=== PATIENT | male | born 1965 | race American Indian/Alaskan Native ===

== ENCOUNTER 2017-11-04 18:19 | Emergency (ER) | payer MEDICAID ==
[~2017-11-04] VITALS: Ht 177.8 cm; Wt 104.3 kg
[2017-11-04] MEDS ORDERED: METFORMIN HCL850 M1 ORAL (18:39)
[2017-11-04] MEDS ORDERED: UNOBMED (18:39)
[2017-11-04 18:53] VITALS: BP 118/75
[2017-11-04] MEDS ORDERED: Tetanus/Diptheria/Pertussis Vaccine 0.5ml Syr IM ONE (19:00)
[2017-11-04] MEDS ORDERED: Augmentin 875mg Tab ORAL ONE (19:00)
[2017-11-04] MEDS ORDERED: AUGMENTIN 875-1 EAC1 ORAL (19:07)
[2017-11-04 19:10] VITALS: BP 120/70
--- NOTE | 2017-11-05 14:07 | Emergency Room Report ---
History of Present Illness General Chief Complaint: General Complaint Source: Patient Present Illness HPI 52-year-old male presents ED for evaluation. Patient states 4 days ago he stepped on a nail. With his right foot. States he pulled out the nail immediately. Notes pain, throbbing, 10 out of 10, nonradiating. Denies fevers chills. Denies discharge or bleeding. Tetanus unknown. No other aggravating relieving factors. Denies any other associated symptoms Allergies: Coded Allergies: No Known Allergies (Unverified , 11/04/17) Patient History Past Medical History: HTN, CHF Past Surgical History: none Pertinent Family History: none Social History: Denies: smoking, alcohol use, drug use Immunizations: UTD Reviewed Nursing Documentation: PMH: Agreed, PSxH: Agreed Nursing Documentation-PMH Hx Cardiac Problems: Yes - CHF Hx Hypertension: Yes Review of Systems All Other Systems: negative except mentioned in HPI Physical Exam Vital Signs Date Time Temp Pulse Resp B/P (MAP) Pulse Ox O2 Delivery O2 Flow Rate FiO2 11/04/17 18:35 97.9 103 17 118/75 96 Room Air Sp02 EP Interpretation: reviewed, normal General Appearance: no apparent distress, alert, GCS 15, non-toxic Head: normocephalic Eyes: bilateral eye normal inspection, bilateral eye PERRL ENT: normal ENT inspection Neck: normal inspection Respiratory: normal inspection Cardiovascular #1: normal inspection Gastrointestinal: normal inspection Rectal: deferred Genitourinary: no CVA tenderness Musculoskeletal: normal inspection Neurologic: alert, oriented x3, responsive, motor strength/tone normal, sensory intact, speech normal Psychiatric: judgement/insight normal, memory normal, mood/affect normal, no suicidal/homicidal ideation Skin: other - puncture wound sole R lateral foot. no surrounding erythema/ induration/fluctuance Lymphatic: normal inspection Medical Decision Making Diagnostic Impression: Primary Impression: Puncture wound ER Course Hospital Course 52-year-old male presents ED with puncture wound to right foot. Differential diagnoses include: Cellulitis, soft tissue injury, abscess Clinical course Patient placed on stretcher. After initial history, physical exam reveals a male in no acute distress. On exam there is evidence of a puncture wound to the lateral aspect of the stable the right foot. There is no surrounding induration or erythema. No fluctuance. No discharge. No bleeding. wound irrigated. Tetanus given in ED. Given Augmentin by mouth Diagnosis - puncture wound stable and discharged to home with prescription for Augmentin. Instructed to followup with PMD. Instructed return to ED if symptoms recur or worsen Last Vital Signs Date Time Temp Pulse Resp B/P (MAP) Pulse Ox O2 Delivery O2 Flow Rate FiO2 11/04/17 19:10 97.9 68 18 120/70 99 Room Air Status: improved Disposition: HOME, SELF-CARE Condition: Stable Scripts Amoxicillin/Potassium Clav 875-125* (AUGMENTIN 875-125 TABLET*) 1 Each Tablet 1 TAB ORAL TWICE A DAY, #14 TAB Prov: NADINE FLORES M.D. 11/04/17 Referrals: [facility],REFERRING (PCP) Patient Instructions: Puncture Wound, [id number] NADINE FLORES M.D. Nov 05, 2017 14:07
== END 2017-11-04 19:20 | disposition home or self-care (01) ==
LOC: EMR 19:12
DX: S91.331A Puncture wound without foreign body, right foot, initial encounter (principal); W22.8XXA Striking against or struck by other objects, initial encounter; Y92.89 Other specified places as the place of occurrence of the external cause; Z23 Encounter for immunization; I11.0 Hypertensive heart disease with heart failure; I50.9 Heart failure, unspecified
CPT/HCPCS: 90471; 90715; 99283

== ENCOUNTER 2019-01-01 19:16 | Inpatient (IN) | payer MEDICAID ==
[~2019-01-01] VITALS: Ht 172.7 cm; Wt 113.9 kg
[~2019-01-01 19:16] MED LIST: AUGMENTIN 875-1 EAC1 ORAL; METFORMIN HCL850 M1 ORAL; UNOBMED
[2019-01-01 19:32] VITALS: BP 156/86
--- NOTE | 2019-01-01 19:32 | NUR ---
ER Nurse Note: Pt BIBA from home c/o abdominal pain for 2 days. Pt stated he had n/v/d; vomited yellow like emesis. Bowel sounds heard in all quadrants, no difficulty voiding. Abdomen distended. No skin breakdown, steady gait. Pt a&ox4, VSS, no signs of distress. ERMD at pt side; will continue to monitor.
[2019-01-01] MEDS ORDERED: Morphine Sulfate 2mg/ml Inj IVP ONE (20:00)
[2019-01-01 20:11] LABS: ANION GAP 8 mmol/L (5-15); BLOOD UREA NITROGEN 14 mg/dL (7-18); CALCIUM 9.6 MG/DL (8.5-10.1); CARBON DIOXIDE 28 MMOL/L (21-32); CHLORIDE 103 MMOL/L (98-107); CREATININE 1.1 MG/DL (0.55-1.30); POTASSIUM 3.6 MMOL/L (3.5-5.1); SODIUM 139 MMOL/L (136-145)
[2019-01-01 20:14] LABS: APPEARANCE,URINE CLEAR; BILIRUBIN, URINE NEGATIVE (NEGATIVE); COLOR,URINE PALE YELLOW; GLUCOSE, URINE (UA) 4+ (NEGATIVE); KETONES,URINE 1+ (NEGATIVE); LEUKOCYTE ESTERASE ,URINE NEGATIVE (NEGATIVE); NITRITE,URINE NEGATIVE (NEGATIVE); PH,URINE 7 (4.5-8.0); PROTEIN,URINE 3+ (NEGATIVE); UROBILINOGEN,URINE NORMAL MG/DL (0.0-1.0)
[2019-01-01 20:20] LABS: ALANINE AMINOTRANSFERASE 25 U/L (12-78); ALBUMIN 3.7 G/DL (3.4-5.0); ALBUMIN/GLOBULIN RATIO 0.9 (1.0-2.7); ALKALINE PHOSPHATASE 73 U/L (46-116); ASPARTATE AMINO TRANSFERASE 24 U/L (15-37); BILIRUBIN,TOTAL 0.9 MG/DL (0.2-1.0); CREATINE KINASE 535 U/L (26-308)
[2019-01-01 20:33] LABS: HEMATOCRIT 40.2 % (42.0-52.0); HEMOGLOBIN 12.9 G/DL (14.2-18.0); MEAN CORPUSCULAR VOLUME 89 FL (80-99); PLATELET COUNT 237 K/UL (150-450); RED BLOOD COUNT 4.53 M/UL (4.70-6.10); RED CELL DISTRIBUTION WIDTH 12.5 % (11.6-14.8); WHITE BLOOD COUNT 12.4 K/UL (4.8-10.8)
--- NOTE | 2019-01-01 21:23 | NUR ---
ER Nurse Note: Pt asleep, VSS, no signs of distress. Pt had on epi of vomiting; ERMD notifed. Awiting lab results; will continue to montior.
[2019-01-01 21:26] VITALS: BP 156/86
[2019-01-01] MEDS ORDERED: Isovue-300 100ml vial INJ PRN (21:30)
[2019-01-01] MEDS ORDERED: CARVEDILOL12.5 MG ORAL (21:45)
[2019-01-01] MEDS ORDERED: FUROSEMIDE20 M1 ORAL (21:45)
[2019-01-01] MEDS ORDERED: GLIPIZIDE5 MG ORAL (21:45)
[2019-01-01] MEDS ORDERED: ELIQUIS5 MG PO (21:45)
[2019-01-01] MEDS ORDERED: ATORVASTATIN CA80 MG ORAL (21:45)
[2019-01-01] MEDS ORDERED: LISINOPRIL5 MG ORAL (21:45)
[2019-01-01] MEDS ORDERED: LOVASTATIN20 MG ORAL (21:45)
--- NOTE | 2019-01-01 23:57 | Consultation ---
History of Present Illness General Date patient seen: Jan 01, 2019 Chief Complaint: Abdominal Pain Reason for Consultation: incarcerated vental hernia Present Illness HPI called urgently for evaluation of incarcerated ventral hernia. 53M presented with 1-2 days of abdominal pain with associated n/v. pain cramping generalized pain. CT in ED concerning for incarcerated ventral hernia. surgery called to evaluate and assist with care and management. patient seen in ED. last BM yesterday. passing flatus. no longer with n/v. Allergies: Coded Allergies: No Known Allergies (Unverified , 11/04/17) Medication History Scheduled Amoxicillin/Potassium Clav 875-125* (Augmentin 875-125 Tablet*), 1 TAB ORAL TWICE A DAY Atorvastatin Calcium* (Lipitor*), 80 MG ORAL BEDTIME, (Reported) Carvedilol* (Carvedilol*), 12.5 MG ORAL EVERY 12 HOURS, (Reported) Furosemide* (Lasix*), 20 MG ORAL DAILY, (Reported) Glipizide* (Glipizide*), 5 MG ORAL BIDAC, (Reported) Lisinopril (Lisinopril*), 5 MG ORAL DAILY, (Reported) Lovastatin (Lovastatin), 20 MG ORAL BEDTIME, (Reported) Metformin Hcl* (Metformin Hcl*), 850 MG ORAL DAILY, (Reported) Miscellaneous Medications Apixaban (Eliquis), 5 MG PO, (Reported) Unable to Obtain Medications (Unable To Obtain Meds), (Reported) Patient History History Provided By: Medical Record, PMD Healthcare decision maker Resuscitation status Advanced Directive on File Past Medical/Surgical History Past Medical/Surgical History: (1) Incarcerated ventral hernia (2) Puncture wound Review of Systems All Other Systems: negative except mentioned in HPI Physical Exam General Appearance: no apparent distress Lines, tubes and drains: peripheral HEENT: mucous membranes moist Neck: normal inspection Respiratory/Chest: no respiratory distress Cardiovascular/Chest: regular rhythm Abdomen: non tender, soft, no organomegaly, no mass, decreased bowel sounds, hernia Extremities: normal inspection Skin Exam: warm/dry Neurologic: alert Last 24 Hour Vital Signs Date Time Temp Pulse Resp B/P (MAP) Pulse Ox O2 Delivery O2 Flow Rate FiO2 01/01/19 21:26 98.1 74 16 156/86 100 Room Air 2/9/19 21:25 98.2 01/01/19 19:32 98.2 82 18 156/86 100 Room Air 01/01/19 19:32 84 18 Room Air 01/01/19 19:10 98.2 84 18 156/86 100 Room Air Laboratory Tests Test 01/01/19 19:40 White Blood Count 12.4 K/UL (4.8-10.8) H Red Blood Count 4.53 M/UL (4.70-6.10) L Hemoglobin 12.9 G/DL (14.2-18.0) L Hematocrit 40.2 % (42.0-52.0) L Mean Corpuscular Volume 89 FL (80-99) Mean Corpuscular Hemoglobin 28.5 PG (27.0-31.0) Mean Corpuscular Hemoglobin Concent 32.2 G/DL (32.0-36.0) Red Cell Distribution Width 12.5 % (11.6-14.8) Platelet Count 237 K/UL (150-450) Mean Platelet Volume 8.0 FL (6.5-10.1) Neutrophils (%) (Auto) % (45.0-75.0) Lymphocytes (%) (Auto) % (20.0-45.0) Monocytes (%) (Auto) % (1.0-10.0) Eosinophils (%) (Auto) % (0.0-3.0) Basophils (%) (Auto) % (0.0-2.0) Differential Total Cells Counted 100 Neutrophils % (Manual) 84 % (45-75) H Lymphocytes % (Manual) 10 % (20-45) L Monocytes % (Manual) 5 % (1-10) Eosinophils % (Manual) 0 % (0-3) Basophils % (Manual) 1 % (0-2) Band Neutrophils 0 % (0-8) Platelet Estimate Adequate Platelet Morphology Normal Red Blood Cell Morphology Normal Urine Color Pale yellow Urine Appearance Clear Urine pH 7 (4.5-8.0) Urine Specific [place] 1.010 (1.005-1.035) Urine Protein 3+ (NEGATIVE) H Urine Glucose (UA) 4+ (NEGATIVE) H Urine Ketones 1+ (NEGATIVE) H Urine Blood 3+ (NEGATIVE) H Urine Nitrite Negative (NEGATIVE) Urine Bilirubin Negative (NEGATIVE) Urine Urobilinogen Normal MG/DL (0.0-1.0) Urine Leukocyte Esterase Negative (NEGATIVE) Urine RBC 2-4 /HPF (0 - 0) H Urine WBC 0-2 /HPF (0 - 0) Urine Squamous Epithelial Cells None /LPF (NONE/OCC) Urine Bacteria Few /HPF (NONE) Sodium Level 139 MMOL/L (136-145) Potassium Level 3.6 MMOL/L (3.5-5.1) Chloride Level 103 MMOL/L (98-107) Carbon Dioxide Level 28 MMOL/L (21-32) Anion Gap 8 mmol/L (5-15) Blood Urea Nitrogen 14 mg/dL (7-18) Creatinine 1.1 MG/DL (0.55-1.30) Estimat Glomerular Filtration Rate > 60 mL/min (>60) Glucose Level 266 MG/DL (74-106) H Calcium Level 9.6 MG/DL (8.5-10.1) Total Bilirubin 0.9 MG/DL (0.2-1.0) Aspartate Amino Transf (AST/SGOT) 24 U/L (15-37) Alanine Aminotransferase (ALT/SGPT) 25 U/L (12-78) Alkaline Phosphatase 73 U/L (46-116) Total Creatine Kinase 535 U/L (26-308) H Troponin I 0.021 ng/mL (0.000-0.056) Total Protein 7.6 G/DL (6.4-8.2) Albumin 3.7 G/DL (3.4-5.0) Globulin 3.9 g/dL Albumin/Globulin Ratio 0.9 (1.0-2.7) L Lipase 104 U/L (73-393) Height (Feet): 5 Height (Inches): 10.00 Weight (Pounds): 250 Medications Current Medications Medications (Trade) Dose Ordered Sig/[place]ron Route PRN Reason Start Time Stop Time Status Last Admin Dose Admin Iopamidol (Isovue-300 100ml) 100 ml NOW PRN INJ Radiology Procedure 01/01/19 21:30 Assessment/Plan Problem List: (1) Incarcerated ventral hernia Assessment & Plan: has incarcerated ventral hernia that was reduced without complication in ED has umbilical hernia as well which was reducible -admit for monitoring -am labs -npo -iv fluids -serial abdominal exam. ICD Codes: K43.6 - Other and unspecified ventral hernia with obstruction, without gangrene SNOMED: [id number] Status: stable VasiliyNestor Jan 01, 2019 23:57
[2019-01-02] VITALS (7 sets, daily range): BP systolic 123–150; BP diastolic 68–84
--- NOTE | 2019-01-02 00:05 | Emergency Room Report ---
History of Present Illness General Chief Complaint: Abdominal Pain Source: Patient Present Illness HPI Patient is a 53-year-old male presented after increased abdominal discomfort. He had prior history of congestive heart failure patient was noted to have. Patient was noted to have increased epigastric abdominal pain. Patient had onset of symptoms approximately day prior to arrival. He reports having some prior episodes of pain in the past. Patient had prior history of cardiac disease and congestive heart failure and normally takes diuretics. He reports having multiple episodes of nonbloody emesis. Patient denies any prior abdominal surgeries. He denies recent alcohol use. He reports being unable to keep down fluids. Allergies: Coded Allergies: No Known Allergies (Unverified , 11/04/17) Patient History Past Medical History: see triage record Reviewed Nursing Documentation: PMH: Agreed; PSxH: Agreed Nursing Documentation-PMH Past Medical History: No History, Except For Hx Hypertension: Yes Review of Systems All Other Systems: negative except mentioned in HPI Physical Exam Vital Signs Date Time Temp Pulse Resp B/P (MAP) Pulse Ox O2 Delivery O2 Flow Rate FiO2 01/01/19 19:10 98.2 84 18 156/86 100 Room Air General Appearance: obese ENT: hearing grossly normal Neck: full range of motion Respiratory: normal breath sounds, crackles Cardiovascular #1: normal peripheral pulses, regular rate, rhythm, edema Gastrointestinal: distended, tenderness - midline , hernia Musculoskeletal: normal inspection Neurologic: normal inspection, alert, oriented x3, responsive Skin: normal inspection Medical Decision Making Diagnostic Impression: Primary Impression: Incarcerated ventral hernia Additional Impression: CHF (congestive heart failure) ER Course Patient presented for abdominal pain. Differential diagnoses included ischemic bowel, appendicitis, perforated viscus, abdominal aortic aneurysm, inferior myocardial infarction, viral gastroenteritis among others. Because of complexity of patient's case laboratory testing and imaging studies were ordered. Patient was noted to have some episodes of emesis. Patient was noted to have a ventral hernia which was difficult to reduce. CT abdomen pelvis was performed which showed an incarcerated ventral hernia read by radiology. Dr. Amanda was contacted for surgical consult. Dr. Scott Delgado was contacted for inpatient management due to panel physician. Labs Test 01/01/19 19:40 White Blood Count 12.4 K/UL (4.8-10.8) Red Blood Count 4.53 M/UL (4.70-6.10) Hemoglobin 12.9 G/DL (14.2-18.0) Hematocrit 40.2 % (42.0-52.0) Mean Corpuscular Volume 89 FL (80-99) Mean Corpuscular Hemoglobin 28.5 PG (27.0-31.0) Mean Corpuscular Hemoglobin Concent 32.2 G/DL (32.0-36.0) Red Cell Distribution Width 12.5 % (11.6-14.8) Platelet Count 237 K/UL (150-450) Mean Platelet Volume 8.0 FL (6.5-10.1) Neutrophils (%) (Auto) % (45.0-75.0) Lymphocytes (%) (Auto) % (20.0-45.0) Monocytes (%) (Auto) % (1.0-10.0) Eosinophils (%) (Auto) % (0.0-3.0) Basophils (%) (Auto) % (0.0-2.0) Differential Total Cells Counted 100 Neutrophils % (Manual) 84 % (45-75) Lymphocytes % (Manual) 10 % (20-45) Monocytes % (Manual) 5 % (1-10) Eosinophils % (Manual) 0 % (0-3) Basophils % (Manual) 1 % (0-2) Band Neutrophils 0 % (0-8) Platelet Estimate Adequate Platelet Morphology Normal Red Blood Cell Morphology Normal Urine Color Pale yellow Urine Appearance Clear Urine pH 7 (4.5-8.0) Urine Specific [place] 1.010 (1.005-1.035) Urine Protein 3+ (NEGATIVE) Urine Glucose (UA) 4+ (NEGATIVE) Urine Ketones 1+ (NEGATIVE) Urine Blood 3+ (NEGATIVE) Urine Nitrite Negative (NEGATIVE) Urine Bilirubin Negative (NEGATIVE) Urine Urobilinogen Normal MG/DL (0.0-1.0) Urine Leukocyte Esterase Negative (NEGATIVE) Urine RBC 2-4 /HPF (0 - 0) Urine WBC 0-2 /HPF (0 - 0) Urine Squamous Epithelial Cells None /LPF (NONE/OCC) Urine Bacteria Few /HPF (NONE) Sodium Level 139 MMOL/L (136-145) Potassium Level 3.6 MMOL/L (3.5-5.1) Chloride Level 103 MMOL/L (98-107) Carbon Dioxide Level 28 MMOL/L (21-32) Anion Gap 8 mmol/L (5-15) Blood Urea Nitrogen 14 mg/dL (7-18) Creatinine 1.1 MG/DL (0.55-1.30) Estimat Glomerular Filtration Rate > 60 mL/min (>60) Glucose Level 266 MG/DL (74-106) Calcium Level 9.6 MG/DL (8.5-10.1) Total Bilirubin 0.9 MG/DL (0.2-1.0) Aspartate Amino Transf (AST/SGOT) 24 U/L (15-37) Alanine Aminotransferase (ALT/SGPT) 25 U/L (12-78) Alkaline Phosphatase 73 U/L (46-116) Total Creatine Kinase 535 U/L (26-308) Troponin I 0.021 ng/mL (0.000-0.056) Total Protein 7.6 G/DL (6.4-8.2) Albumin 3.7 G/DL (3.4-5.0) Globulin 3.9 g/dL Albumin/Globulin Ratio 0.9 (1.0-2.7) Lipase 104 U/L (73-393) Last Vital Signs Date Time Temp Pulse Resp B/P (MAP) Pulse Ox O2 Delivery O2 Flow Rate FiO2 01/01/19 21:26 98.1 74 16 156/86 100 Room Air Status: unchanged Disposition: ADMITTED INPATIENT Condition: Serious Referrals: NON PHYSICIAN (PCP) Camilo Banuelos MD Jan 02, 2019 00:05
--- NOTE | 2019-01-02 00:48 | NUR ---
ER Nurse Note: Pt alert, VSS, no signs of distress. Pt was asleep; felt n/v, ERMD notifed and aware; medication ordered. Awaiting packet for transfer[facility]
--- NOTE | 2019-01-02 00:55 | NUR ---
ER Nurse Note: Report given to GHASSAN Ochoa in [place] for continuity of care. Pt a&ox4, VSS, no signs of distress. All belongings taken with pt.
[2019-01-02] MEDS ORDERED: Zolpidem 5mg tab ORAL PRN (01:00)
[2019-01-02] MEDS ORDERED: Morphine Sulfate 2mg/ml Inj IVP PRN (01:00)
--- NOTE | 2019-01-02 01:30 | NUR ---
NURSE NOTES: Received patient from ER via [email or web address]. Admitting dx of general weakness and abd pain, under Dr Delgado. A/O x4, on RA, no SOB, no acute distress. 20G on LAC intact, patent. Belongings checked, patient has $240 villegas, refused to keep in safe box. No n/v/d at this moment. Oriented to surroundings. V/S stable. Bed in lowest position, locked, alarms on. Call light in reach.
[2019-01-02] MEDS: D5 1/2NS 1,000 ML IV SCH ×2 (01:40→12:14)
[2019-01-02] MEDS: NovoLOG Insulin Flexpen SUBQ SCH ×4 (06:38→20:57)
--- NOTE | 2019-01-02 07:38 | NUR ---
HAND-OFF: Report given to María FERRELL.
[2019-01-02] MEDS: Pantoprazole Inj IV SCH (09:25)
[2019-01-02] MEDS: Morphine Sulfate 4mg/ml Inj (IV/IM USE ONLY) IVP PRN ×2 (09:29→17:53)
--- NOTE | 2019-01-02 11:38 | History & Physical ---
History and Physical History & Physicial HP dictated # [id number] Scott Delgado MD Jan 02, 2019 11:38
--- NOTE | 2019-01-02 13:39 | NUR ---
CASE MANAGEMENT: INITIAL REVIEW 53 YO M JENISE FROM HOME CC: ABD PAIN PMHx: HTN SI:ABD PAIN. HERNIA. T 98.2 HR 84 RR 18 B/P 156/86 SATS 100% ON RA WBC 12.4 GLU 266 TOTAL CK 535 IS: ZOFRAN IV X1 PEPCID IV X1 MORPHINE IV X1 PATIENT ADMITTED TO MED/SURG 01/02/2019 @ 0016 DCP: PATIENT TO BE DISCHARGED TO HOME ONCE MEDICALLY CLEARED. PLAN OF CARE: -npo -iv fluids -serial abdominal exam. Addendum: 01/02/19 at 1546 by Claudette Davies CM INTERQUAL MET FOR ACUTE
--- NOTE | 2019-01-02 14:02 | Surgery Progress Note ---
Surgery Progress Note Subjective Additional Comments states still with pain today. no n/v/f/c. no return of bowel function yet. Objective Last 24 Hour Vital Signs Date Time Temp Pulse Resp B/P (MAP) Pulse Ox O2 Delivery O2 Flow Rate FiO2 01/02/19 09:59 97.7 01/02/19 09:00 Room Air 01/02/19 08:00 97.7 67 18 133/73 (93) 99 01/02/19 04:00 98.6 79 20 123/74 (90) 95 01/02/19 01:30 99.0 71 19 144/78 (100) 96 01/02/19 01:08 Room Air 01/02/19 00:55 98.2 76 16 152/86 100 Room Air 01/02/19 00:36 98.2 78 16 150/82 100 Room Air 01/01/19 21:26 98.1 74 16 156/86 100 Room Air 01/01/19 21:25 98.2 01/01/19 19:32 98.2 82 18 156/86 100 Room Air 01/01/19 19:32 84 18 Room Air 01/01/19 19:10 98.2 84 18 156/86 100 Room Air I&O Intake and Output 01/01/19 01/02/19 19:00 07:00 Intake Total 500 ml Output Total 100 ml Balance 400 ml Intake IV Total 500 ml Output Urine Total 100 ml # Voids 3 Cardiovascular: RSR Respiratory: clear Abdomen: soft, distended, non-tender, other - hernia palpable. a bit more difficult to reduce today Laboratory Tests Test 01/01/19 19:40 White Blood Count 12.4 K/UL (4.8-10.8) H Red Blood Count 4.53 M/UL (4.70-6.10) L Hemoglobin 12.9 G/DL (14.2-18.0) L Hematocrit 40.2 % (42.0-52.0) L Mean Corpuscular Volume 89 FL (80-99) Mean Corpuscular Hemoglobin 28.5 PG (27.0-31.0) Mean Corpuscular Hemoglobin Concent 32.2 G/DL (32.0-36.0) Red Cell Distribution Width 12.5 % (11.6-14.8) Platelet Count 237 K/UL (150-450) Mean Platelet Volume 8.0 FL (6.5-10.1) Neutrophils (%) (Auto) % (45.0-75.0) Lymphocytes (%) (Auto) % (20.0-45.0) Monocytes (%) (Auto) % (1.0-10.0) Eosinophils (%) (Auto) % (0.0-3.0) Basophils (%) (Auto) % (0.0-2.0) Differential Total Cells Counted 100 Neutrophils % (Manual) 84 % (45-75) H Lymphocytes % (Manual) 10 % (20-45) L Monocytes % (Manual) 5 % (1-10) Eosinophils % (Manual) 0 % (0-3) Basophils % (Manual) 1 % (0-2) Band Neutrophils 0 % (0-8) Platelet Estimate Adequate Platelet Morphology Normal Red Blood Cell Morphology Normal Urine Color Pale yellow Urine Appearance Clear Urine pH 7 (4.5-8.0) Urine Specific [place] 1.010 (1.005-1.035) Urine Protein 3+ (NEGATIVE) H Urine Glucose (UA) 4+ (NEGATIVE) H Urine Ketones 1+ (NEGATIVE) H Urine Blood 3+ (NEGATIVE) H Urine Nitrite Negative (NEGATIVE) Urine Bilirubin Negative (NEGATIVE) Urine Urobilinogen Normal MG/DL (0.0-1.0) Urine Leukocyte Esterase Negative (NEGATIVE) Urine RBC 2-4 /HPF (0 - 0) H Urine WBC 0-2 /HPF (0 - 0) Urine Squamous Epithelial Cells None /LPF (NONE/OCC) Urine Bacteria Few /HPF (NONE) Sodium Level 139 MMOL/L (136-145) Potassium Level 3.6 MMOL/L (3.5-5.1) Chloride Level 103 MMOL/L (98-107) Carbon Dioxide Level 28 MMOL/L (21-32) Anion Gap 8 mmol/L (5-15) Blood Urea Nitrogen 14 mg/dL (7-18) Creatinine 1.1 MG/DL (0.55-1.30) Estimat Glomerular Filtration Rate > 60 mL/min (>60) Glucose Level 266 MG/DL (74-106) H Calcium Level 9.6 MG/DL (8.5-10.1) Total Bilirubin 0.9 MG/DL (0.2-1.0) Aspartate Amino Transf (AST/SGOT) 24 U/L (15-37) Alanine Aminotransferase (ALT/SGPT) 25 U/L (12-78) Alkaline Phosphatase 73 U/L (46-116) Total Creatine Kinase 535 U/L (26-308) H Troponin I 0.021 ng/mL (0.000-0.056) Total Protein 7.6 G/DL (6.4-8.2) Albumin 3.7 G/DL (3.4-5.0) Globulin 3.9 g/dL Albumin/Globulin Ratio 0.9 (1.0-2.7) L Lipase 104 U/L (73-393) Plan Problems: (1) Incarcerated ventral hernia Assessment & Plan: has incarcerated ventral hernia that was reduced without complication in ED has umbilical hernia as well which was reducible ventral hernia recurrence today. a bit more difficult to reduce today. patients body habitus makes it difficult to be certain if fully reduced or not. plan for upper GI with bowel follow through tomorrow. -am labs -npo -iv fluids -serial abdominal exam. Nestor Amanda Jan 02, 2019 14:02
[2019-01-02] MEDS ORDERED: Gastrograffin 30ml ORAL PRN (14:15)
--- NOTE | 2019-01-02 15:15 | History and Physical Report ---
DATE OF ADMISSION: 01/02/2019 CHIEF COMPLAINT: Abdominal pain. HISTORY OF PRESENT ILLNESS: This is a 53-year-old male, who is a poor historian. The patient came to the emergency room yesterday with abdominal pain. He was found to have hiatal hernia and per report I got from the ER physician, the patient's hernia was incarcerated. The patient was seen by the general surgeon, Dr. Amanda. The patient is currently not having any nausea or vomiting. PAST MEDICAL HISTORY: Includes history of diabetes mellitus, history of hyperlipidemia. MEDICATIONS: Reviewed in EMR. SOCIAL HISTORY: No history of smoking or alcohol abuse. ALLERGIES: No known drug allergies. REVIEW OF SYSTEMS: Noncontributory. PHYSICAL EXAMINATION: GENERAL: The patient is an obese male. He talks a few sentences and goes back to sleep. VITAL SIGNS: Blood pressure 133/73, pulse 67, respirations 18, and temperature 97.7 degrees. HEENT: [place] conjunctivae. Anicteric sclerae. NECK: Supple. LUNGS: Clear to auscultation. HEART: S1 and S2 without murmurs or rubs. ABDOMEN: Soft. There is a large ventral hernia. There are no intestines felt and it is reproducible. The patient, however, has significant epigastric tenderness. EXTREMITIES: No cyanosis or edema. LABORATORY AND DIAGNOSTIC DATA: Laboratory findings, the CBC shows WBC of 12,400, hematocrit is 40.2, hemoglobin is 12.9, and platelet is 237,000. Chemistry panel shows serum sodium 139, potassium 3.6, chloride 102, CO2 28, glucose 266, and calcium is 9.6. AST is 24 and ALT is 25. The UA was unremarkable except 3+ protein and 2 to 4 rbc's per high-power field. ASSESSMENT: This is a 53-year-old male, who was admitted with abdominal pain, diagnosed with incarcerated ventral hernia. However, at this point, his abdomen does not appear to be acute and there is only tenderness in his epigastric area. The patient has not had any vomiting since admission. PLAN: The patient will be NPO. IV fluids will be administered. The patient will be on pain medications. He will be followed by Dr. Amanda for surgery and we will follow his recommendations. For his diabetes, he is going to be on the sliding scale insulin. Labs will be followed closely. Scott Delgado M.D. DR: Nadeem JOB#: [id number] CC:
--- NOTE | 2019-01-02 19:40 | NUR ---
HAND-OFF: Report given to GHASSAN López.
--- NOTE | 2019-01-02 20:23 | NUR ---
NURSE NOTES: Pt received asleep, woke up and started talking to me, IV intact, IV fluids running, no signs of pain or distress at the moment, able to make needs known, call light within reach, will continue to monitor. Patient NPO and aware.
[2019-01-02] MEDS: Atorvastatin 80mg tab ORAL SCH (20:56)
[2019-01-03] VITALS: BP 128/72
[2019-01-03] MEDS: D5 1/2NS 1,000 ML IV SCH ×3 (03:55→17:24)
[2019-01-03 04:00] VITALS: BP 139/87
[2019-01-03] MEDS: Morphine Sulfate 4mg/ml Inj (IV/IM USE ONLY) IVP PRN ×3 (04:09→17:23)
[2019-01-03] MEDS: NovoLOG Insulin Flexpen SUBQ SCH ×4 (06:08→20:42)
[2019-01-03 07:57] LABS: BASOPHILS % (AUTO) 0.5 % (0.0-2.0); EOSINOPHILS % (AUTO) 0.6 % (0.0-3.0); HEMATOCRIT 35.6 % (42.0-52.0); HEMOGLOBIN 12.1 G/DL (14.2-18.0); LYMPHOCYTES % (AUTO) 8.8 % (20.0-45.0); MEAN CORPUSCULAR VOLUME 87 FL (80-99); NEUTROPHILS % (AUTO) 78.2 % (45.0-75.0); PLATELET COUNT 195 K/UL (150-450); RED BLOOD COUNT 4.09 M/UL (4.70-6.10); RED CELL DISTRIBUTION WIDTH 12.7 % (11.6-14.8); WHITE BLOOD COUNT 15.6 K/UL (4.8-10.8)
[2019-01-03 08:00] VITALS: BP 136/83
--- NOTE | 2019-01-03 08:01 | NUR ---
HAND-OFF: Report given to GHASSAN Daniel.
[2019-01-03] MEDS: Pantoprazole Inj IV SCH (08:24)
[2019-01-03 08:31] LABS: ALANINE AMINOTRANSFERASE 26 U/L (12-78); ALBUMIN 2.8 G/DL (3.4-5.0); ALBUMIN/GLOBULIN RATIO 0.7 (1.0-2.7); ALKALINE PHOSPHATASE 61 U/L (46-116); ANION GAP 7 mmol/L (5-15); ASPARTATE AMINO TRANSFERASE 19 U/L (15-37); BILIRUBIN,TOTAL 1.7 MG/DL (0.2-1.0); BLOOD UREA NITROGEN 9 mg/dL (7-18); CALCIUM 8.3 MG/DL (8.5-10.1); CARBON DIOXIDE 29 MMOL/L (21-32); CHLORIDE 103 MMOL/L (98-107); CHOLESTEROL 118 MG/DL (< 200); CREATININE 1.1 MG/DL (0.55-1.30); HDL CHOLESTEROL 62 MG/DL (40-60); POTASSIUM 3.2 MMOL/L (3.5-5.1); SODIUM 139 MMOL/L (136-145); TRIGLYCERIDES 59 MG/DL (30-150)
[2019-01-03 08:59] LABS: BILIRUBIN,DIRECT 0.3 MG/DL (0.0-0.3)
--- NOTE | 2019-01-03 09:16 | NUR ---
NURSE NOTES: Received phone call from Betty form GI stating that the area will down for the week and no procedures will be done today. Message left with MD Amanda for any further orders. Nurse Laureano notified and was told to inform the patient.
--- NOTE | 2019-01-03 09:21 | NUR ---
NURSE NOTES: Betty from radiology called stating that MD Amanda will do a small bowel follow through with gastro. Awaiting order input or call back from MD Amanda.
--- NOTE | 2019-01-03 11:43 | NUR ---
RADIOLOGY DEPT SMALL SERIES WITH GASTROGRAFFIN COMPLETED.-P.DYE
[2019-01-03 12:00] VITALS: BP 157/82
--- NOTE | 2019-01-03 12:43 | Surgery Progress Note ---
Surgery Progress Note Subjective Additional Comments no acute events. pending gi contrast study Objective Last 24 Hour Vital Signs Date Time Temp Pulse Resp B/P (MAP) Pulse Ox O2 Delivery O2 Flow Rate FiO2 01/03/19 09:00 Room Air 01/03/19 08:54 97.7 01/03/19 08:00 97.7 73 18 136/83 (100) 96 01/03/19 04:00 99.6 83 18 139/87 (104) 94 01/03/19 00:00 99.1 80 18 128/72 (90) 96 01/02/19 21:00 Room Air 01/02/19 20:00 100.2 82 18 132/68 (89) 95 01/02/19 16:00 97.6 69 18 140/84 (102) 100 I&O Intake and Output 01/02/19 01/03/19 18:59 06:59 Intake Total 1000 ml 400 ml Output Total 300 ml Balance 700 ml 400 ml Intake IV Total 1000 ml 400 ml Output Urine Total 300 ml # Voids 1 # Bowel Movements 1 Drains: none Cardiovascular: RSR Respiratory: clear Abdomen: soft, non-tender, present bowel sounds Extremities: no tenderness, no cyanosis, other Laboratory Tests Test 01/03/19 07:10 White Blood Count 15.6 K/UL (4.8-10.8) H Red Blood Count 4.09 M/UL (4.70-6.10) L Hemoglobin 12.1 G/DL (14.2-18.0) L Hematocrit 35.6 % (42.0-52.0) L Mean Corpuscular Volume 87 FL (80-99) Mean Corpuscular Hemoglobin 29.5 PG (27.0-31.0) Mean Corpuscular Hemoglobin Concent 33.9 G/DL (32.0-36.0) Red Cell Distribution Width 12.7 % (11.6-14.8) Platelet Count 195 K/UL (150-450) Mean Platelet Volume 8.9 FL (6.5-10.1) Neutrophils (%) (Auto) 78.2 % (45.0-75.0) H Lymphocytes (%) (Auto) 8.8 % (20.0-45.0) L Monocytes (%) (Auto) 12.0 % (1.0-10.0) H Eosinophils (%) (Auto) 0.6 % (0.0-3.0) Basophils (%) (Auto) 0.5 % (0.0-2.0) Sodium Level 139 MMOL/L (136-145) Potassium Level 3.2 MMOL/L (3.5-5.1) L Chloride Level 103 MMOL/L (98-107) Carbon Dioxide Level 29 MMOL/L (21-32) Anion Gap 7 mmol/L (5-15) Blood Urea Nitrogen 9 mg/dL (7-18) Creatinine 1.1 MG/DL (0.55-1.30) Estimat Glomerular Filtration Rate > 60 mL/min (>60) Glucose Level 196 MG/DL (74-106) H Hemoglobin A1c 9.2 % (4.3-6.0) H Calcium Level 8.3 MG/DL (8.5-10.1) L Magnesium Level 1.6 MG/DL (1.8-2.4) L Total Bilirubin 1.7 MG/DL (0.2-1.0) H Direct Bilirubin 0.3 MG/DL (0.0-0.3) Aspartate Amino Transf (AST/SGOT) 19 U/L (15-37) Alanine Aminotransferase (ALT/SGPT) 26 U/L (12-78) Alkaline Phosphatase 61 U/L (46-116) Total Protein 6.6 G/DL (6.4-8.2) Albumin 2.8 G/DL (3.4-5.0) L Globulin 3.8 g/dL Albumin/Globulin Ratio 0.7 (1.0-2.7) L Triglycerides Level 59 MG/DL (30-150) Cholesterol Level 118 MG/DL (< 200) LDL Cholesterol 50 mg/dL (<100) HDL Cholesterol 62 MG/DL (40-60) H Cholesterol/HDL Ratio 1.9 (3.3-4.4) L Plan Problems: (1) Incarcerated ventral hernia Assessment & Plan: has incarcerated ventral hernia that was reduced without complication in ED has umbilical hernia as well which was reducible ventral hernia recurrence today. a bit more difficult to reduce today. patients body habitus makes it difficult to be certain if fully reduced or not. plan for upper GI with bowel follow through today labs noted exam stable -am labs -diet -iv fluids -serial abdominal exam. Nestor Amandab 11, 2019 12:43
--- NOTE | 2019-01-03 14:28 | General Progress Note ---
Assessment/Plan Problem List: (1) Incarcerated ventral hernia ICD Codes: K43.6 - Other and unspecified ventral hernia with obstruction, without gangrene SNOMED: 465878688 (2) CHF (congestive heart failure) ICD Codes: I50.9 - Heart failure, unspecified SNOMED: 97278782 Status Narrative ok now Assessment/Plan diet as tolerated Discussed with Dr Vasiliy GONZALEZ in AM if stable Subjective Allergies: Coded Allergies: No Known Allergies (Unverified , 11/04/17) Subjective eating Objective Last 24 Hour Vital Signs Date Time Temp Pulse Resp B/P (MAP) Pulse Ox O2 Delivery O2 Flow Rate FiO2 01/03/19 09:00 Room Air 01/03/19 08:54 97.7 01/03/19 08:00 97.7 73 18 136/83 (100) 96 01/03/19 04:00 99.6 83 18 139/87 (104) 94 01/03/19 00:00 99.1 80 18 128/72 (90) 96 01/02/19 21:00 Room Air 01/02/19 20:00 100.2 82 18 132/68 (89) 95 01/02/19 16:00 97.6 69 18 140/84 (102) 100 Intake and Output 01/02/19 01/03/19 18:59 06:59 Intake Total 1000 ml 400 ml Output Total 300 ml Balance 700 ml 400 ml Intake IV Total 1000 ml 400 ml Output Urine Total 300 ml # Voids 1 # Bowel Movements 1 Laboratory Tests 01/03/19 07:10: White Blood Count 15.6H, Red Blood Count 4.09L, Hemoglobin 12.1L, Hematocrit 35.6L, Mean Corpuscular Volume 87, Mean Corpuscular Hemoglobin 29.5, Mean Corpuscular Hemoglobin Concent 33.9, Red Cell Distribution Width 12.7, Platelet Count 195, Mean Platelet Volume 8.9, Neutrophils (%) (Auto) 78.2H, Lymphocytes ( %) (Auto) 8.8L, Monocytes (%) (Auto) 12.0H, Eosinophils (%) (Auto) 0.6, Basophils (%) (Auto) 0.5, Sodium Level 139, Potassium Level 3.2L, Chloride Level 103, Carbon Dioxide Level 29, Anion Gap 7, Blood Urea Nitrogen 9, Creatinine 1.1, Estimat Glomerular Filtration Rate > 60, Glucose Level 196H, Hemoglobin A1c 9.2H, Calcium Level 8.3L, Magnesium Level 1.6L, Total Bilirubin 1.7H, Direct Bilirubin 0.3, Aspartate Amino Transf (AST/SGOT) 19, Alanine Aminotransferase (ALT/SGPT) 26, Alkaline Phosphatase 61, Total Protein 6.6, Albumin 2.8L, Globulin 3.8, Albumin/Globulin Ratio 0.7L, Triglycerides Level 59 , Cholesterol Level 118, LDL Cholesterol 50, HDL Cholesterol 62H, Cholesterol/ HDL Ratio 1.9L Height (Feet): 5 Height (Inches): 8.00 Weight (Pounds): 251 Cardiovascular: normal rate Respiratory/Chest: lungs clear Abdomen: non tender Scott Delgado MD Jan 03, 2019 14:28
[2019-01-03] MEDS ORDERED: D5 1/2NS 1000ml IV ONE (15:59)
[2019-01-03 16:00] VITALS: BP 151/88
--- NOTE | 2019-01-03 17:49 | Diagnostic Imaging Report ---
Indication: Abdominal distention Technique: Patient ingested water-soluble contrast. Serial overhead films obtained Comparison: Reference made to abdomen pelvis CT 01/01/2019 Findings: To registered mail clerk film demonstrates rim calcified gallstones in the right upper quadrant. Pacemaker leads are noted within the heart. The bowel gas pattern is unremarkable. Subsequent images demonstrate normal caliber small bowel demonstrating normal mucosal pattern. Prompt progress of contrast through the small bowel is noted, with contrast seen throughout the colon by 30 minutes. 45 minute image demonstrates progression of most of the contrast into the colon. The ventral colonic hernia described on the recent CT scan is not definitely evident on this study. Impression: Essentially unremarkable small bowel study, demonstrating rapid transit of contrast throughout nondilated small bowel Incidental findings as noted
--- NOTE | 2019-01-03 19:45 | NUR ---
HAND-OFF: Report given to GHASSAN Edwards.
--- NOTE | 2019-01-03 19:47 | NUR ---
NURSE NOTES: Received patient in bed, awake, family at bed side, no acute distress noted, call light is within reach, will continue to monitor, bed is locked, low position, alarm is on.
[2019-01-03 20:00] VITALS: BP 145/81
[2019-01-03] MEDS: Atorvastatin 80mg tab ORAL SCH (20:37)
[2019-01-04] VITALS (7 sets, daily range): BP systolic 124–161; BP diastolic 71–87
[2019-01-04] MEDS: D5 1/2NS 1,000 ML IV SCH ×3 (04:12→23:53)
[2019-01-04] MEDS: NovoLOG Insulin Flexpen SUBQ SCH ×4 (06:42→20:13)
--- NOTE | 2019-01-04 07:15 | NUR ---
HAND-OFF: Report given to Wyatt FERRELL.
--- NOTE | 2019-01-04 07:28 | NUR ---
NURSE NOTES: received report from GHASSAN Travis. patient in bed. alert, verbally responsive. no respiratory distress noted. no c/o pain at this time. iv intact. the bed lowest position. call light within reach. will continue to monitor.
[2019-01-04] MEDS: Pantoprazole Inj IV SCH (08:07)
[2019-01-04] MEDS: Morphine Sulfate 4mg/ml Inj (IV/IM USE ONLY) IVP PRN (10:24)
--- NOTE | 2019-01-04 14:09 | Cardiology Report ---
APPROVED REPORT EKG Measurement Heart [id number] Sinus rhythm Dual-Chamber Pacemaker with occasional premature ventricular complexes Abnormal ECG
--- NOTE | 2019-01-04 15:13 | NUR ---
*-* INSURANCE *-* ALL CLINICALS, REVIEWS AND INTERQUAL FAXED TO: IPA: [employer] AUTH#: [id number] MAY: AYANA Mathias#: [phone] F#: [phone]
--- NOTE | 2019-01-04 18:58 | Surgery Progress Note ---
Surgery Progress Note Subjective Symptoms: improved, tolerating diet, BM Objective Last 24 Hour Vital Signs Date Time Temp Pulse Resp B/P (MAP) Pulse Ox O2 Delivery O2 Flow Rate FiO2 01/04/19 16:00 99.6 84 20 143/79 (100) 01/04/19 12:00 98.3 77 20 141/84 (103) 01/04/19 09:00 Room Air 01/04/19 08:00 97.7 79 20 144/87 (106) 01/04/19 04:00 96.8 76 20 133/71 (91) 01/04/19 01:10 98.2 66 17 124/78 (93) 01/04/19 00:00 98.2 66 17 124/78 (93) 01/03/19 22:17 Room Air 01/03/19 20:00 97.4 82 145/81 (102) I&O Intake and Output 01/03/19 01/04/19 19:00 07:00 Intake Total 1000 ml 1100 ml Balance 1000 ml 1100 ml Intake IV Total 1000 ml 1100 ml Cardiovascular: RSR Respiratory: clear Abdomen: soft, non-tender, present bowel sounds, non-distended Extremities: no tenderness, no cyanosis Plan Problems: (1) Incarcerated ventral hernia Assessment & Plan: has incarcerated ventral hernia that was reduced without complication in ED has umbilical hernia as well which was reducible ventral hernia recurrence today. a bit more difficult to reduce today. patients body habitus makes it difficult to be certain if fully reduced or not. Upper GI / SB study unremarkable. labs noted exam stable -diet -d/c planning -recommend elective hernia repair. needs medical optimization prior. thank you Nestor Amanda Jan 04, 2019 18:58
--- NOTE | 2019-01-04 19:02 | NUR ---
HAND-OFF: Report given to GHASSAN Travis.
--- NOTE | 2019-01-04 19:23 | NUR ---
NURSE NOTES: Received patient in bed, awake, alert, oriented, no acute distress noted, call light is within reach, bed is in low position, locked and alarm is on. Will continue with POC.
--- NOTE | 2019-01-04 19:44 | NUR ---
CASE MANAGEMENT: REVIEW SI: INCARCERATED VENTRAL HERNIA HERNIA REDUCED WITHOUT COMPLICATION IN ED 01/01 T 99.6 HR 84 RR 20 BP 143/79 SAT 98% ROOM AIR IS: PROTONIX IV QD D5 1/2 NS IVF @100ML/HR MORPHINE IV Q3HR MED/SURG STATUS DCP: PATIENT IS FROM HOME
[2019-01-04] MEDS: Atorvastatin 80mg tab ORAL SCH (20:01)
[2019-01-05] VITALS: BP 145/69
[2019-01-05 04:00] VITALS: BP 150/69
[2019-01-05] MEDS: NovoLOG Insulin Flexpen SUBQ SCH (06:22)
--- NOTE | 2019-01-05 06:58 | NUR ---
HAND-OFF: Report given to Dio FERRELL.
--- NOTE | 2019-01-05 07:20 | NUR ---
NURSE NOTES: Received patient in bed, awake, alert and oriented x4. Patient is for discharge. Per patient, his daughter is coming to pick him up. IV intact, denies nausea,vomiting or diarrhea. Bed is in lowest position and locked. Will continue plan of care.
[2019-01-05 08:00] VITALS: BP 142/84
--- NOTE | 2019-01-05 08:20 | NUR ---
NURSE NOTES: Patient discharged to home accompanied by his daughter in stable condition. V/S stable. Denied any pain or discomfort. Patient knows when to seek medical attention. discharge instruction given tot he patient. He will follow up with primary doctor as needed for hernia, CHF and DM. All belongings accounted for. Two IV's were removed. No s/s of infection IV removal site.Skin intact. Escorted patient to the car.
--- NOTE | 2019-01-05 11:35 | NUR ---
*-* INSURANCE *-* UPDATED CLINICALS, REVIEWS FAXED TO: NISREEN: APOLLO AUTH#: [id number] MAY: AYANA Mathias#: [phone] F#: [phone]
--- NOTE | 2019-01-06 12:47 | Discharge Summary ---
Discharge Summary Discharge Summary _ DATE OF ADMISSION: 01/02/2019 DATE OF DISCHARGE: 01/05/2019 DISCHARGED BY: Dr. Scott Delgado CONSULTANTS: Dr. Nestor Amanda BRIEF HOSPITAL COURSE: Patient is a 53-year-old -[place] male, who is a poor historian. He presented to the emergency room because of abdominal pain. He has medical history significant for diabetes mellitus and hyperlipidemia. He developed increased epigastric abdominal pain. Onset of symptoms started today prior to arrival. He reported similar episodes of pain in the past. He reported multiple episodes of nonbloody emesis. He denied any prior abdominal surgery. Denied recent alcohol use. He was unable to keep fluids down. On evaluation at the ED vital signs were stable. Blood work showed leukocytosis , WBC 12.4, hemoglobin was 13, hematocrit 40. Normal. LFTs and lipase were normal. Troponin was negative. Urinalysis showed 3+ protein, 4+ glucose, 1+ ketones, 3+ blood, negative nitrite, negative leukocyte esterase. CT scan of the abdomen and pelvis showed incarcerated ventral hernia. Surgical consultation was made. Patient was then admitted for incarcerated ventral hernia. He was placed on n.p.o. He was given IV hydration. Patient abdomen did not appear to be acute. Patient symptoms were monitored. Patient had incarcerated ventral hernia that was reduced without complication. He also had umbilical hernia that was reducible. There was recurrence of ventral hernia and was difficult to reduce. Surgeon ordered upper GI series. A small bowel follow-through was done and was essentially unremarkable, demonstrating rapid transit of contrast throughout nondilated small bowel. He was tolerating diet. He was recommended elective hernia repair. He was eventually discharged home. FINAL DIAGNOSES: Incarcerated ventral hernia CHF Hyperlipidemia Diabetes mellitus type 2 DISPOSITION: Patient was discharged home. DISCHARGE MEDICATIONS: Refer to Discharge Medication List. DISCHARGE INSTRUCTIONS: Follow-up in a week. I have been assigned to complete a discharge summary on this account, I was not involved with the patient's management. Cindy Gilbert NP Jan 06, 2019 12:47
== END 2019-01-05 08:20 | disposition home or self-care (01) | DRG 254 ==
LOC: EDBD 19:16 → EMR 21:00 → 4E 01-02 00:16 → EDBEDREQ 01-02 00:27
DX: K43.6 Other and unspecified ventral hernia with obstruction, without gangrene (principal); I50.9 Heart failure, unspecified; E11.9 Type 2 diabetes mellitus without complications; E78.5 Hyperlipidemia, unspecified; K42.9 Umbilical hernia without obstruction or gangrene; Z79.84 Long term (current) use of oral hypoglycemic drugs
CPT/HCPCS: 36415; 74177; 74250; 80053; 80061; 81003; 82248; 82550; 82962; 83036; 83690; 83735; 84484; 85007; 85025; 86850; 86900; 86901; 93005; 96374; 96375; 96376; 99285; J1815; J2405; J8499

== ENCOUNTER 2020-04-25 19:39 | Inpatient (IN) | payer MEDICAID ==
[~2020-04-25] VITALS: Ht 175.3 cm; Wt 108.9 kg
[~2020-04-25 19:39] MED LIST changes: +ATORVASTATIN CA80 MG ORAL; +CARVEDILOL12.5 MG ORAL; +ELIQUIS5 MG PO; +FUROSEMIDE20 M1 ORAL; +GLIPIZIDE5 MG ORAL; +GLUCOPHAGE850 MG ORAL; +LANTUS SOL100 UNIT/1 SUBQ; +LISINOPRIL5 MG ORAL; +LOVASTATIN20 MG ORAL
[2020-04-25 19:55] VITALS: BP 136/81
--- NOTE | 2020-04-25 19:55 | NUR ---
ED Nurse Note: Patient walked in from home d/t lower abdominal pain 10/10 for 1 day. Patient aao x 4 and ambulatory with steady gait. Patient reports gall bladder drainage tube removal 3 days ago. Patient changed into gown and placed on pad machine operator. No acute distress noted during assessment.
[2020-04-25] MEDS ORDERED: Morphine Sulfate 4mg/ml Inj (IV USE ONLY) IVP ONE (20:00)
[2020-04-25] MEDS ORDERED: Omnipaque-300 100ml vial INJ PRN (20:00)
[2020-04-25 20:24] LABS: HEMATOCRIT 40.3 % (42.0-52.0); HEMOGLOBIN 12.6 G/DL (14.2-18.0); MEAN CORPUSCULAR VOLUME 91 FL (80-99); PLATELET COUNT 205 K/UL (150-450); RED BLOOD COUNT 4.42 M/UL (4.70-6.10); RED CELL DISTRIBUTION WIDTH 13.5 % (11.6-14.8); WHITE BLOOD COUNT 18.1 K/UL (4.8-10.8)
[2020-04-25 20:25] LABS: BASOPHILS % (AUTO) 0.7 % (0.0-2.0); LYMPHOCYTES % (AUTO) 7.2 % (20.0-45.0); MONOCYTES % (AUTO) 12.4 % (1.0-10.0); NEUTROPHILS % (AUTO) 79.8 % (45.0-75.0)
[2020-04-25 20:39] LABS: ANION GAP 11 mmol/L (5-15); BLOOD UREA NITROGEN 9 mg/dL (7-18); CALCIUM 8.5 MG/DL (8.5-10.1); CARBON DIOXIDE 26 MMOL/L (21-32); CHLORIDE 95 MMOL/L (98-107); CREATININE 1.3 MG/DL (0.55-1.30); POTASSIUM 3.5 MMOL/L (3.5-5.1); SODIUM 132 MMOL/L (136-145)
--- NOTE | 2020-04-25 20:47 | NUR ---
ED Nurse Note: Patient taken to CT in stable condition.
[2020-04-25 20:49] LABS: ALANINE AMINOTRANSFERASE 26 U/L (12-78); ALBUMIN/GLOBULIN RATIO 0.7 (1.0-2.7); ALKALINE PHOSPHATASE 73 U/L (46-116); ASPARTATE AMINO TRANSFERASE 19 U/L (15-37); BILIRUBIN,TOTAL 1.9 MG/DL (0.2-1.0)
[2020-04-25 20:52] LABS: BILIRUBIN,DIRECT 0.3 MG/DL (0.0-0.3)
--- NOTE | 2020-04-25 20:54 | NUR ---
ED Nurse Note: Urine sent to lab.
--- NOTE | 2020-04-25 21:00 | NUR ---
ED Nurse Note: Patient returned from CT in stable condition and placed back on cardiac cath lab manager.
[2020-04-25 21:15] LABS: APPEARANCE,URINE SLIGHTLY CLOUDY; BILIRUBIN, URINE NEGATIVE (NEGATIVE); COLOR,URINE AMBER; GLUCOSE, URINE (UA) 4+ (NEGATIVE); KETONES,URINE 2+ (NEGATIVE); LEUKOCYTE ESTERASE ,URINE NEGATIVE (NEGATIVE); NITRITE,URINE NEGATIVE (NEGATIVE); PH,URINE 5 (4.5-8.0); PROTEIN,URINE 3+ (NEGATIVE); UROBILINOGEN,URINE NORMAL MG/DL (0.0-1.0)
--- NOTE | 2020-04-25 21:48 | NUR ---
ED Nurse Note: Xray at bedside.
--- NOTE | 2020-04-25 22:02 | NUR ---
ED Nurse Note: Patient asleep in bed, no acute distress noted.
[2020-04-25 22:03] VITALS: BP 139/91
--- NOTE | 2020-04-25 22:06 | Diagnostic Imaging Report ---
CT abdomen and pelvis with contrast History: Abdominal pain Technique: Axial contrast-enhanced CT of the abdomen and pelvis with coronal, sagittal reformatted images. CTDI is 18.1 mGy and DLP is 951.4 mGy-cm. Technique more: One or more of the following dose reduction techniques were used: automated exposure control, adjustment of the mA and/or kV according to patient size, use of iterative reconstruction technique. Comparison: 10/21/2019 Findings: Lung bases: Clear Distal heart and esophagus: Cardiac pacer wires extending into the right heart. Liver: Anterior subcapsular low-density near the dome of the liver is unchanged. Gallbladder: Vacuum phenomena, gas and multiple gallbladder stones. Consider underlying cholecystitis. Right anterolateral abdominal wall sinus tract extending towards the gallbladder fundus is noted. Question any previous intervention. Negative for ductal dilation Pancreas: Normal Spleen: Normal Adrenals: Mild hypertrophy of the left adrenal. Kidneys: Normal with lobulated contour. Body wall: Anterior abdominal wall supraumbilical hernia with 3 cm neck, transverse colon extending into it is unchanged. Negative for strangulation or obstruction. Fat in the hernia extends inferiorly towards the umbilicus. Another right periumbilical small hernia with a 1. 2 cm neck Retroperitoneum: Normal caliber of the aorta. Unchanged periportal, celiac axis, anterior interaortocaval small lymph nodes. Bowel: Mild diverticulosis in the junction of the left colon and sigmoid colon. No inflammatory changes 8 for fracture. Caliber of the small bowel loops is normal. Pelvis: Partially distended urinary bladder. Prostate is unremarkable. Fat is seen extending into bilateral inguinal canals Bones: No lytic or blastic bony lesion. Impression: 1. Gallbladder is full of stones with nondependent gas. Sinus tract is seen in the anterior lateral right abdominal wall extending towards the gallbladder fundus. Please correlate for any recent procedure or drainage tube placement 2. Supraumbilical ventral abdominal wall hernia with transverse colon extending into it. Negative for obstruction no significant change from prior exam. 3. Minimal diverticulosis near the junction of the descending colon and sigmoid colon. Negative for diverticulitis.
--- NOTE | 2020-04-25 22:28 | Emergency Room Report ---
History of Present Illness General Chief Complaint: Abdominal Pain Source: Patient (Anselmo Ewing MD) Present Illness HPI 54-year-old male presents with abdominal pain x1 day. Also notes nausea and vomiting. History of ventral hernia. History of gallstones and in September had a drainage tube placed. States he was high risk for surgery given his weight in medical problems. States that he was supposed to have a drainage tube removed but because of COVID he was unable to. Accidentally pulled it out a few days ago. Pain is a 10 out of 10, dull, nonradiating. Notes nausea, denies vomiting (Anselmo Ewing MD) Allergies: Coded Allergies: No Known Allergies (Unverified , 11/04/17) COVID-19 Screening Contact w/high risk pt: No Recent Travel to affected area: No Experienced COVID-19 symptoms?: No COVID-19 Testing performed MULTIM[employer]IA EDITOR: Yes COVID-19 Screening: Negative COVID-19 COVID-19 Testing Source: [facility] 2 WKS AGO (Anselmo Ewing MD) Patient History Past Medical History: HTN, CVA/TIA Past Surgical History: pacemaker, other - GB drainage Pertinent Family History: none Social History: Denies: smoking, alcohol use, drug use Immunizations: UTD Reviewed Nursing Documentation: PMH: Agreed; PSxH: Agreed (Anselmo Ewing MD) Nursing Documentation-PMH Hx Cardiac Problems: Yes - PACEMAKER ON LEFT CHEST Hx Hypertension: Yes Hx Diabetes: Yes Hx Cancer: No Hx Gastrointestinal Problems: Yes Hx Neurological Problems: Yes Hx Cerebrovascular Accident: Yes (Anselmo Ewing MD) Review of Systems All Other Systems: negative except mentioned in HPI (Anselmo Ewing MD) Physical Exam Vital Signs Date Time Temp Pulse Resp B/P (MAP) Pulse Ox O2 Delivery O2 Flow Rate FiO2 04/25/20 19:44 99.1 91 18 136/83 (100) 99 Room Air Sp02 EP Interpretation: reviewed, normal General Appearance: no apparent distress, alert, GCS 15, non-toxic, obese Head: normocephalic, atraumatic Eyes: bilateral eye normal inspection, bilateral eye PERRL ENT: hearing grossly normal, normal pharynx, no angioedema, normal voice Neck: full range of motion, supple/symm/no masses Respiratory: chest non-tender, lungs clear, normal breath sounds, speaking full sentences Cardiovascular #1: regular rate, rhythm, no edema Cardiovascular #2: 2+ carotid (R), 2+ carotid (L), 2+ radial (R), 2+ radial (L) , 2+ dorsalis pedis (R), 2+ dorsalis pedis (L) Gastrointestinal: normal bowel sounds, non tender, soft, non-distended, no guarding, no rebound, hernia - reducible ventral hernia, other - GB drainage tube removed. Rectal: deferred Genitourinary: normal inspection, no CVA tenderness Musculoskeletal: back normal, normal range of motion, gait/station normal, non- tender Neurologic: alert, motor strength/tone normal, oriented x3, sensory intact, responsive, speech normal Psychiatric: judgement/insight normal, memory normal, mood/affect normal, no suicidal/homicidal ideation Reflexes: 3+ bicep (R), 3+ bicep (L), 3+ tricep (R), 3+ tricep (L), 3+ knee (R) , 3+ knee (L) Skin: no rash Lymphatic: no adenopathy (Anselmo Ewing MD) Medical Decision Making Diagnostic Impression: Primary Impression: Incarcerated ventral hernia Additional Impression: Cholecystitis Labs Test 04/25/20 20:00 04/25/20 20:41 White Blood Count 18.1 K/UL (4.8-10.8) Red Blood Count 4.42 M/UL (4.70-6.10) Hemoglobin 12.6 G/DL (14.2-18.0) Hematocrit 40.3 % (42.0-52.0) Mean Corpuscular Volume 91 FL (80-99) Mean Corpuscular Hemoglobin 28.4 PG (27.0-31.0) Mean Corpuscular Hemoglobin Concent 31.2 G/DL (32.0-36.0) Red Cell Distribution Width 13.5 % (11.6-14.8) Platelet Count 205 K/UL (150-450) Mean Platelet Volume 10.1 FL (6.5-10.1) Neutrophils (%) (Auto) 79.8 % (45.0-75.0) Lymphocytes (%) (Auto) 7.2 % (20.0-45.0) Monocytes (%) (Auto) 12.4 % (1.0-10.0) Eosinophils (%) (Auto) 0.0 % (0.0-3.0) Basophils (%) (Auto) 0.7 % (0.0-2.0) Sodium Level 132 MMOL/L (136-145) Potassium Level 3.5 MMOL/L (3.5-5.1) Chloride Level 95 MMOL/L (98-107) Carbon Dioxide Level 26 MMOL/L (21-32) Anion Gap 11 mmol/L (5-15) Blood Urea Nitrogen 9 mg/dL (7-18) Creatinine 1.3 MG/DL (0.55-1.30) Estimat Glomerular Filtration Rate > 60 mL/min (>60) Glucose Level 310 MG/DL (74-106) Calcium Level 8.5 MG/DL (8.5-10.1) Total Bilirubin 1.9 MG/DL (0.2-1.0) Direct Bilirubin 0.3 MG/DL (0.0-0.3) Aspartate Amino Transf (AST/SGOT) 19 U/L (15-37) Alanine Aminotransferase (ALT/SGPT) 26 U/L (12-78) Alkaline Phosphatase 73 U/L (46-116) Total Protein 7.5 G/DL (6.4-8.2) Albumin 3.0 G/DL (3.4-5.0) Globulin 4.5 g/dL Albumin/Globulin Ratio 0.7 (1.0-2.7) Lipase 123 U/L (73-393) Urine Color Janet Urine Appearance Slightly cloudy Urine pH 5 (4.5-8.0) Urine Specific [place] 1.020 (1.005-1.035) Urine Protein 3+ (NEGATIVE) Urine Glucose (UA) 4+ (NEGATIVE) Urine Ketones 2+ (NEGATIVE) Urine Blood 4+ (NEGATIVE) Urine Nitrite Negative (NEGATIVE) Urine Bilirubin Negative (NEGATIVE) Urine Ictotest Negative (NEGATIVE) Urine Urobilinogen Normal MG/DL (0.0-1.0) Urine Leukocyte Esterase Negative (NEGATIVE) Urine RBC 20-30 /HPF (0 - 0) Urine WBC 0-2 /HPF (0 - 0) Urine Squamous Epithelial Cells None /LPF (NONE/OCC) Urine Bacteria Few /HPF (NONE) (Anselmo Ewing MD) ER Course Patient signed out to me. He presents with chief complaint abdominal pain with incarcerated hernia and cholecystitis. He was pending transfer. Patient was approved for admission here. Patient admitted to panel Dr Stauffer. Dr. Moctezuma, surgeon, already saw pt in ER. (Theodore Calixto MD) CT/MRI/US Diagnostic Results CT/MRI/US Diagnostic Results : Imaging Test Ordered: CT A/P Impression Gallbladder: Vacuum phenomena, gas and multiple gallbladder stones. Consider underlying cholecystitis. Right anterolateral abdominal wall sinus tract extending towards the gallbladder fundus is noted. Question any previous intervention. Negative for ductal dilation Pancreas: Normal Spleen: Normal Adrenals: Mild hypertrophy of the left adrenal. Kidneys: Normal with lobulated contour. Body wall: Anterior abdominal wall supraumbilical hernia with 3 cm neck, transverse colon extending into it is unchanged. Negative for strangulation or obstruction. Fat in the hernia extends inferiorly towards the umbilicus. Another right periumbilical small hernia with a 1.2 cm neck Retroperitoneum: Normal caliber of the aorta. Unchanged periportal, celiac axis , anterior interaortocaval small lymph nodes. Bowel: Mild diverticulosis in the junction of the left colon and sigmoid colon. No inflammatory changes 8 for fracture. Caliber of the small bowel loops is normal. Pelvis: Partially distended urinary bladder. Prostate is unremarkable. Fat is seen extending into bilateral inguinal canals Bones: No lytic or blastic bony lesion. Impression: 1. Gallbladder is full of stones with nondependent gas. Sinus tract is seen in the anterior lateral right abdominal wall extending towards the gallbladder fundus. Please correlate for any recent procedure or drainage tube placement 2. Supraumbilical ventral abdominal wall hernia with transverse colon extending into it. Negative for obstruction no significant change from prior exam. 3. Minimal diverticulosis near the junction of the descending colon and sigmoid colon. Negative for diverticulitis. (Anselmo Ewing MD) Last Vital Signs Date Time Temp Pulse Resp B/P (MAP) Pulse Ox O2 Delivery O2 Flow Rate FiO2 04/25/20 22:03 105 25 139/91 100 Room Air 04/25/20 19:55 99.1 Status: improved (Anselmo Ewing MD) Status: improved (Theodore Calixto MD) Disposition: ADMITTED INPATIENT Condition: Serious Referrals: [facility],REFERRING (PCP) Anselmo Ewing MD Apr 25, 2020 22:28 Theodore Calixto MD Apr 25, 2020 23:44
[2020-04-25] MEDS ORDERED: Piperacillin/Tazobactam 3.375 GM in NS 110 ML IVPB ONE (22:30)
--- NOTE | 2020-04-25 22:30 | Diagnostic Imaging Report ---
Chest x-ray 1 view History: Cough FINDINGS: Single frontal view demonstrates a normal cardiomediastinal silhouette. Left chest wall cardiac pacer with lead extending into the right heart. The lungs are clear. Pulmonary vascular congestion without overt pulmonary edema. No pleural effusions. The visualized osseous structures are within normal limits. IMPRESSION: 1. Pulmonary vascular congestion without overt pulmonary edema.
--- NOTE | 2020-04-25 23:52 | NUR ---
ED Nurse Note: Report given to GHASSAN Aden in med surg.
--- NOTE | 2020-04-26 00:12 | NUR ---
TRANSFER TO FLOOR: Patient transferred to med surg as ordered, per ERMD. Report given to GHASSAN Cortez. Patient transported via gurney in stable condition accompanied by RN.
[2020-04-26 00:30] VITALS: BP 100/55
--- NOTE | 2020-04-26 00:37 | NUR ---
NURSE NOTES: Received report from GHASSAN Montero. Patient arrived via gurney. Awake and alert x4. On room air with no signs of distress or SOB. No C/O nausea or pain at this time. L pacemaker noted. Patient ambulates. Skin intact. Belongings checked with patient. Patient oriented to room. Bed locked and in lowest position. Call light in reach. Left message for Dr. Stauffer. Awaiting callback. Will continue to monitor the patient.
--- NOTE | 2020-04-26 00:44 | NUR ---
NURSE NOTES: Patient noted to have temp of 102.2. Heart rate 110. Administered bridge order Tylenol 650. Notified Dr. Stauffer. Awaiting orders.
[2020-04-26 04:00] VITALS: BP 99/56
[2020-04-26] MEDS: Piperacillin/Tazobactam 3.375 GM in NS 110 ML IVPB SCH ×3 (06:58→21:11)
[2020-04-26 07:06] LABS: HEMATOCRIT 34.9 % (42.0-52.0); HEMOGLOBIN 12.1 G/DL (14.2-18.0); MEAN CORPUSCULAR VOLUME 84 FL (80-99); PLATELET COUNT 187 K/UL (150-450); RED BLOOD COUNT 4.15 M/UL (4.70-6.10); RED CELL DISTRIBUTION WIDTH 12.3 % (11.6-14.8); WHITE BLOOD COUNT 17.9 K/UL (4.8-10.8)
[2020-04-26 07:32] LABS: ANION GAP 10 mmol/L (5-15); BLOOD UREA NITROGEN 12 mg/dL (7-18); CALCIUM 8.2 MG/DL (8.5-10.1); CARBON DIOXIDE 26 MMOL/L (21-32); CHLORIDE 100 MMOL/L (98-107); CREATININE 1.2 MG/DL (0.55-1.30); POTASSIUM 3.7 MMOL/L (3.5-5.1); SODIUM 136 MMOL/L (136-145)
[2020-04-26] MEDS: NovoLOG Insulin Flexpen SUBQ SCH ×4 (07:37→20:44)
--- NOTE | 2020-04-26 07:39 | NUR ---
HAND-OFF: Report given to GHASSAN Schneider.
--- NOTE | 2020-04-26 07:47 | NUR ---
NURSE NOTES: Report received from GHASSAN Cortez. Patient received in bed in no apparent distress, no c/o any discomfort at this time, bed in lowest position with alarm on and breaks engaged, IV line on right AC patent and intact with NS running at 100 cc/hr, patient is NPO at this time, will continue to monitor and proceed with plan of care, call light within easy reach.
[2020-04-26 08:00] VITALS: BP 99/58
--- NOTE | 2020-04-26 08:02 | NUR ---
NURSE NOTES: patient was seen by . MD will put orders for test. No procedure at this time. Keep patient NPO.
--- NOTE | 2020-04-26 09:50 | NUR ---
*-* NO INSURANCE INFORMATION IN THE BAR TO WHOM TO SEND CLINICALS AND DAILY REVIEWS *-*
--- NOTE | 2020-04-26 09:54 | NUR ---
*-* INSURANCE *-* ALL AVAILABLE CLINICALS HAVE BEEN FAXED TO: [facility] P: [phone] F: [phone] Addendum: 04/26/20 at 1352 by JONNATHAN BLANKENSHIP CM F:[phone] Addendum: 04/27/20 at 0954 by JONNATHAN BLANKENSHIP CM [facility]-NO AUTH YET ON FILE FAX ALL CLINICALS TO [facility] P:[phone] F:[phone]
--- NOTE | 2020-04-26 10:30 | NUR ---
NURSE NOTES: patient c/o abd pain 06/[address] Amanda and received order give morphine 2mg q4hrs PRN for moderate pain. order noted and carried out.
--- NOTE | 2020-04-26 12:47 | NUR ---
NURSE NOTES: patient c/o chilly, n/v. vomited small amount of greenish liquid mixed with saliva. no medication for nausea. notified and is aware.
--- NOTE | 2020-04-26 14:31 | NUR ---
CASE MANAGEMENT:REVIEW 54 YR OLD MALE WALKED INTO ER CC: ABDOMINAL PAIN. ACCIDENTALLY PULLED OUT HIS GALLBLADDER DRAIN 3 DAYS AGO. VOMITING SI: CHOLECYSTITIS. INCARCERATED VENTRAL HERNIA 99.2 105 25 136/83 99% ON RA WBC+18.1 H/H-12.6/40.3 GLUCOSE+310 IS: IV ZOFRAN IV MORPHINE 1L NS BOLUS IV ZOSYN CHEST XRAY CT ABDOMEN/PELVIS : MED/SURG STATUS DCP: FROM HOME Addendum: 04/26/20 at 1512 by JAI DE LA CRUZ, VISHNU MARES interqual criteria met
--- NOTE | 2020-04-26 14:45 | NUR ---
TRANSFER UPDATE RECEIVED CALL FROM [facility] ADMITTED ATTORNEYS STATING PATIENT IS OUT OF NETWORK AND BELONGS AT [facility] MD DR FELDER IS GOING TO CALL DR CHAVEZ REGARDING TRANSFER
--- NOTE | 2020-04-26 16:50 | Consultation ---
History of Present Illness General Date patient seen: Apr 26, 2020 Reason for Hospitalization: Abdominal Pain Present Illness HPI 54-year-old male presents with abdominal pain x1 day. Also notes nausea and vomiting. History of ventral hernia. History of gallstones and in September s/ p cholecystostomy drainage tube placed. States he was high risk for surgery given his weight in medical problems. States that he was supposed to have a drainage tube removed but because of COVID he was unable to. Accidentally pulled it out a few days ago. Pain is a 10 out of 10, dull, nonradiating. Notes nausea, denies vomiting. came to [facility] for evaluation. leukocytosis CT as below. surgery called to evaluate Allergies: Coded Allergies: No Known Allergies (Unverified , 11/04/17) COVID-19 Screening Contact w/high risk pt: No Recent Travel to affected area: No Experienced COVID-19 symptoms?: No Medication History Scheduled Atorvastatin Calcium* (Lipitor*), 80 MG ORAL BEDTIME, (Reported) Carvedilol* (Carvedilol*), 12.5 MG ORAL EVERY 12 HOURS, (Reported) Furosemide* (Lasix*), 20 MG ORAL DAILY, (Reported) Glipizide* (Glipizide*), 5 MG ORAL BIDAC, (Reported) Insulin Glargine (Lantus), 0 SUBQ BEDTIME, (Reported) Lisinopril (Lisinopril*), 5 MG ORAL DAILY, (Reported) Lovastatin (Lovastatin), 20 MG ORAL BEDTIME, (Reported) Metformin Hcl* (Metformin Hcl*), 850 MG ORAL DAILY, (Reported) Metformin Hcl* (Glucophage*), 850 MG ORAL DAILY, (Reported) Miscellaneous Medications Apixaban (Eliquis), 5 MG PO, (Reported) Patient History History Provided By: Patient Healthcare decision maker Resuscitation status Advanced Directive on File Past Medical/Surgical History Past Medical/Surgical History: (1) Incarcerated ventral hernia (2) Cholecystitis (3) Puncture wound Review of Systems Review of Symptoms General ROS: no weight loss or fever Psychological ROS: no depression or mood changes, no memory loss Ophthalmic ROS: no visual changes or eye irritation ENT ROS: no nasal congestion, hearing loss, dizziness Allergy and Immunology ROS: no allergic symptoms or urticaria Hematological and Lymphatic ROS: no swollen glands, unusual bleeding or bruising Endocrine ROS: no polyuria, polydipsia, weight changes, temperature intolerance Respiratory ROS: no cough, shortness of breath, or wheezing Cardiovascular ROS: no chest pain or dyspnea on exertion Gastrointestinal ROS: denies abdominal pain, bright red blood in stool. Musculoskeletal ROS: no myalgias or arthralgias Neurological ROS: no TIA or stroke symptoms Dermatological ROS: no new or changing skin lesions, rashes or pruritis Physical Exam Physical Exam General appearance: alert, cooperative, no distress, appears stated age Head: Normocephalic, without obvious abnormality, atraumatic Eyes: conjunctivae/corneas clear. PERRL, EOM's intact. Fundi benign Throat: Lips, mucosa, and tongue normal. Teeth and gums normal Neck: supple, symmetrical, trachea midline, no adenopathy, thyroid: not enlarged, symmetric, no tenderness/mass/nodules, no carotid bruit and no JVD Lungs: clear to auscultation bilaterally Heart: regular rate and rhythm, S1, S2 normal, no murmur, click, rub or gallop Abdomen: soft, non-tender. Bowel sounds normal. No masses, no organomegaly. hernia reduced Extremities: extremities normal, atraumatic, no cyanosis or edema Pulses: 2+ and symmetric Skin: Skin color, texture, turgor normal. No rashes or lesions Neurologic: Grossly normal Last 24 Hour Vital Signs Date Time Temp Pulse Resp B/P (MAP) Pulse Ox O2 Delivery O2 Flow Rate FiO2 04/26/20 09:00 Room Air 04/26/20 08:00 97.2 94 18 99/58 (72) 93 04/26/20 04:00 98.1 92 20 99/56 (70) 95 04/26/20 00:53 Room Air 04/26/20 00:30 102.2 110 22 100/55 (70) 93 04/26/20 00:12 99.1 108 21 146/78 96 Room Air 04/25/20 22:03 105 25 139/91 100 Room Air 04/25/20 19:55 102 25 Room Air 04/25/20 19:55 99.1 102 25 136/81 97 Room Air 04/25/20 19:44 99.1 91 18 136/83 (100) 99 Room Air Intake and Output 04/25/20 04/26/20 19:00 07:00 Intake Total 1260 ml Balance 1260 ml Intake Oral 50 ml IV Total 1210 ml # Bowel Movements 1 Laboratory Tests Test 04/25/20 20:00 04/25/20 20:41 04/26/20 06:35 White Blood Count 18.1 K/UL (4.8-10.8) H 17.9 K/UL (4.8-10.8) H Red Blood Count 4.42 M/UL (4.70-6.10) L 4.15 M/UL (4.70-6.10) L Hemoglobin 12.6 G/DL (14.2-18.0) L 12.1 G/DL (14.2-18.0) L Hematocrit 40.3 % (42.0-52.0) L 34.9 % (42.0-52.0) L Mean Corpuscular Volume 91 FL (80-99) 84 FL (80-99) Mean Corpuscular Hemoglobin 28.4 PG (27.0-31.0) 29.1 PG (27.0-31.0) Mean Corpuscular Hemoglobin Concent 31.2 G/DL (32.0-36.0) L 34.5 G/DL (32.0-36.0) Red Cell Distribution Width 13.5 % (11.6-14.8) 12.3 % (11.6-14.8) Platelet Count 205 K/UL (150-450) 187 K/UL (150-450) Mean Platelet Volume 10.1 FL (6.5-10.1) 8.6 FL (6.5-10.1) Neutrophils (%) (Auto) 79.8 % (45.0-75.0) H % (45.0-75.0) Lymphocytes (%) (Auto) 7.2 % (20.0-45.0) L % (20.0-45.0) Monocytes (%) (Auto) 12.4 % (1.0-10.0) H % (1.0-10.0) Eosinophils (%) (Auto) 0.0 % (0.0-3.0) % (0.0-3.0) Basophils (%) (Auto) 0.7 % (0.0-2.0) % (0.0-2.0) Sodium Level 132 MMOL/L (136-145) L 136 MMOL/L (136-145) Potassium Level 3.5 MMOL/L (3.5-5.1) 3.7 MMOL/L (3.5-5.1) Chloride Level 95 MMOL/L (98-107) L 100 MMOL/L (98-107) Carbon Dioxide Level 26 MMOL/L (21-32) 26 MMOL/L (21-32) Anion Gap 11 mmol/L (5-15) 10 mmol/L (5-15) Blood Urea Nitrogen 9 mg/dL (7-18) 12 mg/dL (7-18) Creatinine 1.3 MG/DL (0.55-1.30) 1.2 MG/DL (0.55-1.30) Estimat Glomerular Filtration Rate > 60 mL/min (>60) > 60 mL/min (>60) Glucose Level 310 MG/DL (74-106) H 276 MG/DL (74-106) H Calcium Level 8.5 MG/DL (8.5-10.1) 8.2 MG/DL (8.5-10.1) L Total Bilirubin 1.9 MG/DL (0.2-1.0) H Direct Bilirubin 0.3 MG/DL (0.0-0.3) Aspartate Amino Transf (AST/SGOT) 19 U/L (15-37) Alanine Aminotransferase (ALT/SGPT) 26 U/L (12-78) Alkaline Phosphatase 73 U/L (46-116) Total Protein 7.5 G/DL (6.4-8.2) Albumin 3.0 G/DL (3.4-5.0) L Globulin 4.5 g/dL Albumin/Globulin Ratio 0.7 (1.0-2.7) L Lipase 123 U/L (73-393) Urine Color Janet Urine Appearance Slightly cloudy Urine pH 5 (4.5-8.0) Urine Specific [place] 1.020 (1.005-1.035) Urine Protein 3+ (NEGATIVE) H Urine Glucose (UA) 4+ (NEGATIVE) H Urine Ketones 2+ (NEGATIVE) H Urine Blood 4+ (NEGATIVE) H Urine Nitrite Negative (NEGATIVE) Urine Bilirubin Negative (NEGATIVE) Urine Ictotest Negative (NEGATIVE) Urine Urobilinogen Normal MG/DL (0.0-1.0) Urine Leukocyte Esterase Negative (NEGATIVE) Urine RBC 20-30 /HPF (0 - 0) H Urine WBC 0-2 /HPF (0 - 0) Urine Squamous Epithelial Cells None /LPF (NONE/OCC) Urine Bacteria Few /HPF (NONE) Differential Total Cells Counted 100 Neutrophils % (Manual) 85 % (45-75) H Lymphocytes % (Manual) 7 % (20-45) L Monocytes % (Manual) 7 % (1-10) Eosinophils % (Manual) 1 % (0-3) Basophils % (Manual) 0 % (0-2) Band Neutrophils 0 % (0-8) Platelet Estimate Adequate Platelet Morphology Normal Red Blood Cell Morphology Normal Height (Feet): 5 Height (Inches): 9.00 Weight (Pounds): 240 Medications Current Medications Medications (Trade) Dose Ordered Sig/Byron Route PRN Reason Start Time Stop Time Status Last Admin Dose Admin Acetaminophen (Tylenol) 650 mg Q4H PRN ORAL Temp >100.5 04/26/20 05:45 05/26/20 05:44 04/26/20 16:07 Al Hydroxide/Mg Hydroxide (Mylanta) 30 ml Q4H PRN ORAL stomach upset 04/26/20 13:15 05/26/20 05:44 Dextrose (Dextrose 50%) 25 ml Q30M PRN IV Hypoglycemia 04/26/20 06:45 07/25/20 06:44 Dextrose (Dextrose 50%) 50 ml Q30M PRN IV Hypoglycemia 04/26/20 06:45 07/25/20 06:44 Insulin Aspart (NovoLOG) BEFORE MEALS AND HS SUBQ 04/26/20 06:45 07/25/20 06:44 Iohexol (OMNIPAQUE-300 100ml) 100 ml NOW PRN INJ Radiology Procedure 04/25/20 20:00 04/27/20 19:59 Morphine Sulfate (Morphine Sulfate) 2 mg Q4H PRN IVP Moderate Pain (Pain Scale 4-6) 04/26/20 11:00 05/03/20 10:59 Ondansetron HCl (Zofran) 4 mg Q6H PRN IVP Nausea & Vomiting 04/26/20 13:15 05/26/20 13:14 04/26/20 13:14 Pantoprazole (Protonix) 40 mg DAILY ORAL 04/26/20 09:00 05/26/20 08:59 04/26/20 09:07 Piperacillin Sod/ Tazobactam Sod 3.375 gm/Sodium Chloride 110 ml @ 27.5 mls/hr Q8HR IVPB 04/26/20 06:00 05/03/20 05:59 04/26/20 13:16 Sodium Chloride 1,000 ml @ 100 mls/hr Q10H IV 04/26/20 05:45 05/26/20 05:44 04/26/20 16:08 Assessment/Plan Problem List: (1) Incarcerated ventral hernia Assessment & Plan: reducible at bedside defect 3cm x 3cm no strangulation oakyf or diet will monitor do not recommend emergency surgery at this time pending bowel function ICD Codes: K43.6 - Other and unspecified ventral hernia with obstruction, without gangrene SNOMED: 451194208 (2) Cholecystitis Assessment & Plan: recent erin tube dislodged labs noted lft's okay will order HIDA thank you Distal heart and esophagus: Cardiac pacer wires extending into the right heart. Liver: Anterior subcapsular low-density near the dome of the liver is unchanged. Gallbladder: Vacuum phenomena, gas and multiple gallbladder stones. Consider underlying cholecystitis. Right anterolateral abdominal wall sinus tract extending towards the gallbladder fundus is noted. Question any previous intervention. Negative for ductal dilation Pancreas: Normal Spleen: Normal Adrenals: Mild hypertrophy of the left adrenal. Kidneys: Normal with lobulated contour. Body wall: Anterior abdominal wall supraumbilical hernia with 3 cm neck, transverse colon extending into it is unchanged. Negative for strangulation or obstruction. Fat in the hernia extends inferiorly towards the umbilicus. Another right periumbilical small hernia with a 1. 2 cm neck Retroperitoneum: Normal caliber of the aorta. Unchanged periportal, celiac axis, anterior interaortocaval small lymph nodes. Bowel: Mild diverticulosis in the junction of the left colon and sigmoid colon. No inflammatory changes 8 for fracture. Caliber of the small bowel loops is normal. Pelvis: Partially distended urinary bladder. Prostate is unremarkable. Fat is seen extending into bilateral inguinal canals Bones: No lytic or blastic bony lesion. Impression: 1. Gallbladder is full of stones with nondependent gas. Sinus tract is seen in the anterior lateral right abdominal wall extending towards the gallbladder fundus. Please correlate for any recent procedure or drainage tube placement 2. Supraumbilical ventral abdominal wall hernia with transverse colon extending into it. Negative for obstruction no significant change from prior exam. 3. Minimal diverticulosis near the junction of the descending colon and sigmoid colon. Negative for diverticulitis. ICD Codes: K81.9 - Cholecystitis, unspecified SNOMED: 72388402 (3) Puncture wound ICD Codes: T14.8XXA - Other injury of unspecified body region, initial encounter SNOMED: [id number] Nestor Amanda Apr 26, 2020 16:50
--- NOTE | 2020-04-26 18:15 | History and Physical Report ---
DATE OF ADMISSION: 04/25/2020 REASON FOR ADMISSION: Possible cholecystitis. HISTORY OF PRESENT ILLNESS: The patient is a 54-year-old male who presents with abdominal pain for one day, also having some nausea and vomiting, history of ventral hernia with history of gallstones and drainage tube placed recently. The patient with a drainage tube, was unable to follow up due to pandemic. The patient apparently had accidentally pulled it out a few days ago. The patient with significant amount of pain. The patient now being admitted for further care and management, further evaluation of possible cholecystitis. PAST MEDICAL HISTORY: Notable for hypertension, CVA, TIA, history of gallstones with prior drainage. SOCIAL HISTORY: Nonsmoker and nondrinker. REVIEW OF SYSTEMS: Notable for pacemaker, left chest wall. PHYSICAL EXAMINATION: GENERAL: Well developed male, complaining of some pain. VITAL SIGNS: Reviewed. T-max 102.2, blood pressure 99/56, heart rate 92. HEENT: Overall negative. NECK: Supple LUNGS: Good air entry. CARDIAC: S1 and S2. Regular rate and rhythm. ABDOMEN: Normal bowel sounds. Reducible ventral hernia. The patient with some right upper quadrant tenderness. EXTREMITIES: No cyanosis, clubbing, or edema. LABORATORY DATA: Reviewed. White count 17.9, hematocrit 34. Chemistries fairly negative. Blood sugar 276. IMPRESSION: Possible cholecystitis, diabetes, heart disease, hypercholesterolemia, possible congestive heart failure. RECOMMENDATIONS: Hold home medications for now and resume postoperatively. Surgical evaluation to follow for ongoing care and management, antiemetics as needed for now, and we will obtain ID evaluation for further recommendations. For now, start antibiotics and provide pain control. Ruddy Stauffer M.D. DR: Brian JOB#: [id number] CC: FRANCA
--- NOTE | 2020-04-26 19:25 | NUR ---
HAND-OFF: Report given to VISHNU Burroughs.
[2020-04-26 20:00] VITALS: BP 120/77
--- NOTE | 2020-04-26 20:00 | NUR ---
NURSE NOTES: RECEIVED PATIENT LYING IN BED, AWAKE, ALERT/ORIENTED X4, VERBALLY RESPONSIVE, DENIES PAIN. NO SIGNS AND SYMPTOMS OF ACUTE CARDIO RESPIRATORY DISTRESS/SHORTNESS OF BREATH, DENIES CHEST PAIN, NOTED WITH TRACE EDEMA, ELEVATING BILATERAL LOWER EXTREMITIES ON PILLOW. IV INTACT TO RIGHT AC/GAUGE 20, NO REDNESS/SWELLING NOTED TO SITE. WBC 17.9, MD AWARE, TRENDING IN RIGHT DIRECTION. TOLERATING WELL. NO COMPLAINTS OF ABDOMINAL PAIN, NO N/V/D. SIDE RAILS UP X2, BED IN LOWEST POSITION FOR SAFETY, CALL LIGHT WITHIN REACH, FREQUENT ROUNDING FOR SAFETY/NEEDS. NAD.
[2020-04-26] MEDS ORDERED: Atorvastatin 80mg tab ORAL SCH (21:00)
[2020-04-26] MEDS: Morphine Sulfate 2mg/ml Inj(IV/IM USE ONLY) IVP PRN (23:26)
[2020-04-27] VITALS: BP 111/65
--- NOTE | 2020-04-27 01:53 | NUR ---
NURSE NOTES: EYES CLOSED ON ROUNDS. NAD.
[2020-04-27 04:00] VITALS: BP 124/68
[2020-04-27] MEDS: Piperacillin/Tazobactam 3.375 GM in NS 110 ML IVPB SCH (05:27)
[2020-04-27] MEDS: NovoLOG Insulin Flexpen SUBQ SCH (06:30)
[2020-04-27] MEDS ORDERED: GlipiZIDE 5mg tab ORAL SCH (06:30)
--- NOTE | 2020-04-27 06:39 | NUR ---
NURSE NOTES: RESTED WELL, NO SIGNIFICANT CHANGE OF CONDITION NOTED THROUGHOUT THE NIGHT. SAFETY MAINTAINED. NAD,.
--- NOTE | 2020-04-27 07:15 | NUR ---
NURSE NOTES: received patient in bed. Awake, A/O x4. On room air. Patient denies pain. IV in the Left forearm, site intact. Bed low and locked. Patient is NPO this morning for procedure.
[2020-04-27 08:00] VITALS: BP 103/59
[2020-04-27 08:09] LABS: HEMATOCRIT 36.1 % (42.0-52.0); HEMOGLOBIN 12.8 G/DL (14.2-18.0); MEAN CORPUSCULAR VOLUME 83 FL (80-99); PLATELET COUNT 182 K/UL (150-450); RED BLOOD COUNT 4.36 M/UL (4.70-6.10); RED CELL DISTRIBUTION WIDTH 12.1 % (11.6-14.8); WHITE BLOOD COUNT 13.3 K/UL (4.8-10.8)
[2020-04-27 09:00] LABS: ALANINE AMINOTRANSFERASE 42 U/L (12-78); ALBUMIN 2.5 G/DL (3.4-5.0); ALBUMIN/GLOBULIN RATIO 0.6 (1.0-2.7); ALKALINE PHOSPHATASE 88 U/L (46-116); AMYLASE 12 U/L (25-115); ANION GAP 12 mmol/L (5-15); ASPARTATE AMINO TRANSFERASE 60 U/L (15-37); BILIRUBIN,TOTAL 1.4 MG/DL (0.2-1.0); BLOOD UREA NITROGEN 16 mg/dL (7-18); CALCIUM 8.2 MG/DL (8.5-10.1); CARBON DIOXIDE 24 MMOL/L (21-32); CHLORIDE 97 MMOL/L (98-107); CREATININE 1.5 MG/DL (0.55-1.30); POTASSIUM 3.7 MMOL/L (3.5-5.1); SODIUM 133 MMOL/L (136-145)
[2020-04-27] MEDS ORDERED: Lisinopril 2.5mg tab ORAL SCH (09:00)
--- NOTE | 2020-04-27 09:00 | NUR ---
NURSE NOTES: Patient refused lisinopril PO. Re-educated on risks and benefits.
[2020-04-27 09:01] LABS: BILIRUBIN,DIRECT 0.4 MG/DL (0.0-0.3)
--- NOTE | 2020-04-27 09:16 | General Progress Note ---
Assessment/Plan Assessment/Plan: IMPRESSION: Possible cholecystitis, diabetes, heart disease, hypercholesterolemia, possible congestive heart failure. transaminitis PLAN monitor antibiotics t/f to contracted hospital may need to replace stent impression, plan, and exam edited and reviewed in detail care discussed with RN Subjective Allergies: Coded Allergies: No Known Allergies (Unverified , 11/04/17) Subjective care noted and reviewed d/w surgery high risk for intervention Objective Last 24 Hour Vital Signs Date Time Temp Pulse Resp B/P (MAP) Pulse Ox O2 Delivery O2 Flow Rate FiO2 04/27/20 04:00 97.9 95 18 124/68 (86) 96 04/27/20 00:00 98.7 90 18 111/65 (80) 96 04/26/20 23:56 98.7 04/26/20 21:00 Room Air 04/26/20 20:00 98.1 91 18 120/77 (91) 95 04/26/20 16:37 100.2 Intake and Output 04/26/20 04/27/20 18:59 06:59 Intake Total 710.0 ml 1437.5 ml Output Total 700 ml Balance 710.0 ml 737.5 ml Intake Oral 600 ml IV Total 710.0 ml 837.5 ml Output Urine Total 700 ml # Bowel Movements 1 Laboratory Tests 04/27/20 07:30: White Blood Count 13.3H, Red Blood Count 4.36L, Hemoglobin 12.8L, Hematocrit 36.1L, Mean Corpuscular Volume 83, Mean Corpuscular Hemoglobin 29.4, Mean Corpuscular Hemoglobin Concent 35.5, Red Cell Distribution Width 12.1, Platelet Count 182, Mean Platelet Volume 8.9, Neutrophils (%) (Auto) , Lymphocytes (%) ( Auto) , Monocytes (%) (Auto) , Eosinophils (%) (Auto) , Basophils (%) (Auto) , Neutrophils % (Manual) [Pending], Lymphocytes % (Manual) [Pending], Platelet Estimate [Pending], Platelet Morphology [Pending], Erythrocyte Sedimentation Rate 61H, Prothrombin Time 10.9, Prothromb Time International Ratio 1.0, Activated Partial Thromboplast Time 28, Sodium Level 133L, Potassium Level 3.7, Chloride Level 97L, Carbon Dioxide Level 24, Anion Gap 12, Blood Urea Nitrogen 16, Creatinine 1.5H, Estimat Glomerular Filtration Rate 59.1, Glucose Level 231H , Calcium Level 8.2L, Total Bilirubin 1.4H, Direct Bilirubin 0.4H, Aspartate Amino Transf (AST/SGOT) 60H, Alanine Aminotransferase (ALT/SGPT) 42, Alkaline Phosphatase 88, C-Reactive Protein, Quantitative 32.9H, Total Protein 6.9, Albumin 2.5L, Globulin 4.4, Albumin/Globulin Ratio 0.6L, Amylase Level 12L, Lipase 77 Height (Feet): 5 Height (Inches): 9.00 Weight (Pounds): 240 Objective GENERAL: Well developed male, complaining of some pain. HEENT: Overall negative. NECK: Supple LUNGS: Good air entry. CARDIAC: S1 and S2. Regular rate and rhythm. ABDOMEN: Normal bowel sounds. Reducible ventral hernia. The patient with some right upper quadrant tenderness. EXTREMITIES: No cyanosis, clubbing, or edema. Ruddy Stauffer MD Apr 27, 2020 09:16
--- NOTE | 2020-04-27 09:40 | NUR ---
NURSE NOTES: Patient sent off unit for procedure. Patient stable, no apparent distress noted.
--- NOTE | 2020-04-27 10:02 | NUR ---
SPEECH COACH NOTE CALL MADE TO [facility] MAY GUERRIER @ [phone] IN RE TO DC TO [facility]. NO ANSWER. MATTHEW LEFT REQUESTING CALL BACK. Addendum: 04/27/20 at 1036 by PATRICIA BRENNAN LVN LVN CALL BACK RECEIVED FROM FAREED OLVERA @ [facility]. CONFIRMED PATIENTS [facility] IS [facility] REQUESTED TO DATE CLINICALS BE FAXED TO [phone] FAREED WILL CALL THIS CM BACK WITH UPDATE AND INFO FOR POSSIBLE TRANSFER TO [facility]
[2020-04-27] MEDS: Morphine Sulfate 2mg/ml Inj(IV/IM USE ONLY) IVP PRN (10:47)
--- NOTE | 2020-04-27 10:55 | NUR ---
ICT EDUCATOR NOTE CALL RECEIVED FROM FAREED OLVERA @ [facility]. INFORMED THIS CM THAT PEER TO PEER HAS BEEN COMPLETED. PATIENT WILL BE ADMITTED TO [facility] WITH DR PATEL. FAREED WILL CONTACT THIS CM WITH TRANSFER INFO AND AMBULANCE ETA ONCE CONFIRMED. GHASSAN SANTIAGO INFORMED AND AWARE OF DC TO IN [facility].
--- NOTE | 2020-04-27 11:39 | NUR ---
NM Hepatobiliary (HIDA) Scan complete.
--- NOTE | 2020-04-27 12:05 | NUR ---
DISCHARGE PLAN CALL RECEIVED FROM [facility]RI[facility] PER FARE[facility], PATIENT WILL TRANSFER TO [facility] TO [address]106 VIA AMBULANCE WITH ETA @ 1300. RN TO CALL [phone] FOR NURSE TO NURSE REPORT.
--- NOTE | 2020-04-27 12:41 | NUR ---
NURSE NOTES: Report given to Jorge FERRELL at [facility].
--- NOTE | 2020-04-27 13:01 | NUR ---
NURSE NOTES: Patient d/c via [facility]. Patient stable, VSS. Belongings list verified.
--- NOTE | 2020-04-27 13:01 | NUR ---
NURSE NOTES: Covid-19 swab sent down to labratory.
--- NOTE | 2020-04-27 14:06 | Diagnostic Imaging Report ---
Indications: Abdominal pain Technique: IV administration 6.1 mCi 99 M technetium Choletec. Serial images obtained over the abdomen for 2 hrs. At one hour, IV administration 2 mg of morphine. Comparison: None Findings: Prompt tracer uptake within the liver. Extrahepatic bile ducts are seen at 7 minutes. Excretion into the duodenum demonstrated at 10 minutes. The gallbladder is never visualized . No evidence of contrast extravasation Impression: Nonvisualization of the gallbladder. This is concerning for acute cholecystitis Patent common bile duct. No evidence for bile leak
--- NOTE | 2020-04-27 14:31 | Surgery Progress Note ---
Surgery Progress Note Subjective Additional Comments late entry leukocytosis HIDA noted and reviewed with radiology discussed with pcp. plan to transfer to OSH for insurance reasons Objective Last 24 Hour Vital Signs Date Time Temp Pulse Resp B/P (MAP) Pulse Ox O2 Delivery O2 Flow Rate FiO2 04/27/20 09:00 Room Air 04/27/20 08:00 98.6 103 22 103/59 (74) 90 04/27/20 04:00 97.9 95 18 124/68 (86) 96 04/27/20 00:00 98.7 90 18 111/65 (80) 96 04/26/20 23:56 98.7 04/26/20 21:00 Room Air 04/26/20 20:00 98.1 91 18 120/77 (91) 95 04/26/20 16:37 100.2 I&O Intake and Output 04/26/20 04/27/20 19:00 07:00 Intake Total 610.0 ml 1437.5 ml Output Total 700 ml Balance 610.0 ml 737.5 ml Intake Oral 600 ml IV Total 610.0 ml 837.5 ml Output Urine Total 700 ml # Bowel Movements 1 Dressing: other Wound: other Drains: other Cardiovascular: RSR Respiratory: decreased breath sounds Abdomen: soft, present bowel sounds Extremities: no cyanosis Laboratory Tests Test 04/27/20 07:30 White Blood Count 13.3 K/UL (4.8-10.8) H Red Blood Count 4.36 M/UL (4.70-6.10) L Hemoglobin 12.8 G/DL (14.2-18.0) L Hematocrit 36.1 % (42.0-52.0) L Mean Corpuscular Volume 83 FL (80-99) Mean Corpuscular Hemoglobin 29.4 PG (27.0-31.0) Mean Corpuscular Hemoglobin Concent 35.5 G/DL (32.0-36.0) Red Cell Distribution Width 12.1 % (11.6-14.8) Platelet Count 182 K/UL (150-450) Mean Platelet Volume 8.9 FL (6.5-10.1) Neutrophils (%) (Auto) % (45.0-75.0) Lymphocytes (%) (Auto) % (20.0-45.0) Monocytes (%) (Auto) % (1.0-10.0) Eosinophils (%) (Auto) % (0.0-3.0) Basophils (%) (Auto) % (0.0-2.0) Differential Total Cells Counted 100 Neutrophils % (Manual) 91 % (45-75) H Lymphocytes % (Manual) 5 % (20-45) L Monocytes % (Manual) 4 % (1-10) Eosinophils % (Manual) 0 % (0-3) Basophils % (Manual) 0 % (0-2) Band Neutrophils 0 % (0-8) Platelet Estimate Adequate Platelet Morphology Normal Red Blood Cell Morphology Normal Erythrocyte Sedimentation Rate 61 MM/HR (0-20) H Prothrombin Time 10.9 SEC (9.30-11.50) Prothromb Time International Ratio 1.0 (0.9-1.1) Activated Partial Thromboplast Time 28 SEC (23-33) Sodium Level 133 MMOL/L (136-145) L Potassium Level 3.7 MMOL/L (3.5-5.1) Chloride Level 97 MMOL/L (98-107) L Carbon Dioxide Level 24 MMOL/L (21-32) Anion Gap 12 mmol/L (5-15) Blood Urea Nitrogen 16 mg/dL (7-18) Creatinine 1.5 MG/DL (0.55-1.30) H Estimat Glomerular Filtration Rate 59.1 mL/min (>60) Glucose Level 231 MG/DL (74-106) H Calcium Level 8.2 MG/DL (8.5-10.1) L Total Bilirubin 1.4 MG/DL (0.2-1.0) H Direct Bilirubin 0.4 MG/DL (0.0-0.3) H Aspartate Amino Transf (AST/SGOT) 60 U/L (15-37) H Alanine Aminotransferase (ALT/SGPT) 42 U/L (12-78) Alkaline Phosphatase 88 U/L (46-116) C-Reactive Protein, Quantitative 32.9 mg/dL (0.00-0.90) H Total Protein 6.9 G/DL (6.4-8.2) Albumin 2.5 G/DL (3.4-5.0) L Globulin 4.4 g/dL Albumin/Globulin Ratio 0.6 (1.0-2.7) L Amylase Level 12 U/L (25-115) L Lipase 77 U/L (73-393) Plan Problems: (1) Incarcerated ventral hernia Assessment & Plan: reducible at bedside defect 3cm x 3cm no strangulation oakyf or diet will monitor do not recommend emergency surgery at this time pending bowel function (2) Cholecystitis Assessment & Plan: recent erin tube dislodged labs noted lft's okay HIDA Positive recommend cholecystostomy tube placement thank you Distal heart and esophagus: Cardiac pacer wires extending into the right heart. Liver: Anterior subcapsular low-density near the dome of the liver is unchanged. Gallbladder: Vacuum phenomena, gas and multiple gallbladder stones. Consider underlying cholecystitis. Right anterolateral abdominal wall sinus tract extending towards the gallbladder fundus is noted. Question any previous intervention. Negative for ductal dilation Pancreas: Normal Spleen: Normal Adrenals: Mild hypertrophy of the left adrenal. Kidneys: Normal with lobulated contour. Body wall: Anterior abdominal wall supraumbilical hernia with 3 cm neck, transverse colon extending into it is unchanged. Negative for strangulation or obstruction. Fat in the hernia extends inferiorly towards the umbilicus. Another right periumbilical small hernia with a 1. 2 cm neck Retroperitoneum: Normal caliber of the aorta. Unchanged periportal, celiac axis, anterior interaortocaval small lymph nodes. Bowel: Mild diverticulosis in the junction of the left colon and sigmoid colon. No inflammatory changes 8 for fracture. Caliber of the small bowel loops is normal. Pelvis: Partially distended urinary bladder. Prostate is unremarkable. Fat is seen extending into bilateral inguinal canals Bones: No lytic or blastic bony lesion. Impression: 1. Gallbladder is full of stones with nondependent gas. Sinus tract is seen in the anterior lateral right abdominal wall extending towards the gallbladder fundus. Please correlate for any recent procedure or drainage tube placement 2. Supraumbilical ventral abdominal wall hernia with transverse colon extending into it. Negative for obstruction no significant change from prior exam. 3. Minimal diverticulosis near the junction of the descending colon and sigmoid colon. Negative for diverticulitis. (3) Puncture wound Nestor Amanda Apr 27, 2020 14:31
--- NOTE | 2020-04-27 14:42 | NUR ---
*-* INSURANCE *-* UPDATED CLINICALS AND REVIEWS HAVE BEEN FAXED TO: ELVI SMALLS P: [phone] F: [phone] & AMIE NIELSON P: [phone] F: [phone] Addendum: 04/27/20 at 1444 by JONNATHAN BLANKENSHIP CM NO DISCHARGE SUMMARY IN THE SYSTEM Addendum: 05/01/20 at 1222 by JONNATHAN BLANKENSHIP CM *-* INSURANCE *-* ALL AVAILABLE CLINICALS HAVE BEEN FAXED TO: [facility] P: [phone] F: [phone] & [employer] [place]NO AUTH YET ON FILE FAX ALL CLINICALS TO [facility] P:[phone] F:[phone]
--- NOTE | 2020-04-27 16:15 | Consultation ---
DATE OF CONSULTATION: 04/27/2020 INFECTIOUS DISEASES CONSULTATION CONSULTING PHYSICIAN: Shantanu Saxena MD. REFERRING PHYSICIAN: Ruddy Stauffer MD. REASON FOR CONSULTATION: Possible cholecystitis. HISTORY OF PRESENTING ILLNESS: This is a 54-year-old gentleman with history of hypertension, CVA, gallstones who comes in with nausea, vomiting, and abdominal pain. Apparently he had a drain placed in his abdomen and he accidentally pulled it out. There was a concern for cholecystitis and COVID-19 pneumonia. An Infectious Diseases consultation has been obtained for antibiotics. PAST MEDICAL HISTORY: 1. History of CVA. 2. Hypertension. 3. TIA. 4. Gallstones. SOCIAL HISTORY: He does not smoke, drink, or use drugs. FAMILY HISTORY: Unknown. REVIEW OF SYSTEMS: Unable to obtain currently. MEDICATIONS: As an inpatient, he is on furosemide, lisinopril, metformin, glipizide, atorvastatin, Zofran, Mylanta, morphine, Protonix, insulin, Zosyn, Tylenol. ALLERGIES: No known drug allergies. PHYSICAL EXAMINATION: VITAL SIGNS: Temperature of 98.6, T-max of 102.2, pulse of 103, respiratory rate 22, blood pressure 103/59, O2 saturation of 90% on room air. Examination is deferred due to possibility of COVID-19. LABORATORY AND DIAGNOSTIC DATA: White count of 13.3, white count of 18.1 on 04/25/2020, hemoglobin 12.8, hematocrit 36.1, MCV 83, platelet count of 182, with neutrophils of 91%. Sodium 133, potassium 3.7, chloride 97, bicarb 24, BUN 16, creatinine 1.5, glucose 231, calcium 8.2. Total bilirubin 1.4, direct bilirubin 0.4, AST 60, ALT 42, alkaline phosphatase 88. C-reactive protein 32.9. Total protein 6.9, albumin 2.5. Amylase of 12, lipase of 77. UA is showing 0 to 2 white cells. Chest x-ray is showing pulmonary vascular congestion without edema. CT abdomen and pelvis showing gallbladder full of stones with gas, sinus tract in the anterolateral right abdominal wall extending towards the gallbladder fundus, supraumbilical ventral abdominal hernia, diverticulosis noted. ASSESSMENT: This is a 54-year-old gentleman with history of hypertension, CVA, and gallstones who has had recent drainage with a drain removed who comes in with fevers, would be concerned regarding. 1. Cholecystitis. 2. Leukocytosis is improving. 3. We would like to rule out COVID-19 pneumonia. 4. . 5. CVA. PLAN: 1. Continue Zosyn. 2. We will follow up cultures. 3. We will follow up HIDA scan. 4. We will order COVID-[address]. [address] the patient on isolation. I would like to thank, Dr. Stauffer for this consultation. Shantanu Saxena M.D. DR: Kirsty JOB#: [id number] CC: Ruddy Stauffer M.D.; Fax#: [phone]
--- NOTE | 2020-04-29 14:21 | Discharge Summary ---
Discharge Summary Discharge Summary _ DATE OF ADMISSION: 04/25/2020 DATE OF DISCHARGE: 04/27/2020 DISCHARGED BY: Dr. Marta Stauffer CONSULTANTS: Dr. Shantanu Amanda BRIEF HOSPITAL COURSE: Patient is a 54-year-old male, who presented to ED due to abdominal pain x1 day , with nausea and vomiting. He has a history of ventral hernia and history of gallstones and drainage tube placed recently. Patient had a drainage tube, but was unable to follow-up due to pandemic. He apparently accidentally pulled it out few days prior. He presented with significant amount of pain. He has medical history significant for hypertension, CVA, TIA. Upon evaluation at ED, blood work showed leukocytosis with WBC elevated to 18. Hemoglobin 12.6, hematocrit 40. Sodium 132, potassium 3.5, chloride 95, creatinine 1.3. Total bilirubin was elevated to 1.9. Direct bilirubin borderline. LFTs were normal. Lipase normal. CT of the abdomen pelvis showed gallbladder full of stones with nondependent gas. Sinus tract seen in the anterior lateral right abdominal wall extending towards the gallbladder fundus. Supraumbilical ventral abdominal wall hernia with transverse colon extending into it. Negative for obstruction. Minimal diverticulosis, negative for diverticulitis. He was then admitted for possible cholecystitis. He was admitted to medical floor. He was placed on n.p.o. He was started empirically on antibiotics. He underwent surgical evaluation. Ventral hernia was reducible at bedside. There was no strangulation. No emergency surgical intervention required. T-max was 102.2. Infectious disease specialist was consulted. He was continued on Zosyn. SARS-CoV-2 was not detected. HIDA scan showed nonvisualization of the gallbladder, concerning for acute cholecystitis. Patent common bile duct. No evidence of bile leak. Patient will eventually need cholecystostomy tube placement. He was eventually transferred to a contracted hospital. FINAL DIAGNOSES: Possible cholecystitis Diabetes mellitus Heart disease Hypercholesterolemia Possible congestive heart failure Transaminitis Incarcerated ventral hernia, reducible at bedside DISPOSITION: Transferred to [facility]. I have been assigned to complete a discharge summary on this account, I was not involved with the patient's management.--FABIOLA Woods Jacqueline Robles NP Apr 29, 2020 14:21
--- NOTE | 2020-04-30 09:59 | CDS Physician Query ---
Clarification is required for compliance, coding accuracy, and to reflect severity of illness for this patient Dear Dr. Ruddy Stauffer M.D. Date: 04/30/2020 CDI/CDS Name: Mumtaz Baldwin Clinical Documentation Statement: "54-year-old male who presents with abdominal pain for one day, also having some nausea and vomiting, history of ventral hernia with history of gallstones and drainage tube placed recently." [ H& P Ruddy Stauffer MD 04/26/20] IMPRESSION: Possible cholecystitis, diabetes, heart disease, hypercholesterolemia, possible congestive heart failure. Clinical Finding Show: Vitals (04/25): T99.1F, Pulse 102, RR 25, BP136/83 LAB (04/25) : Hemat; WBC 17.9, Neut% 79.8 Chem: Glucose 310, Alb 3.0, Sodium 132, Chloride 95 Medication: Piperacilin IV (04/25-04/27), Sodium Chloride( 04/25-04/27) According to the clinical indications above, please indicate below the condition PHYSICIAN RESPONSE: Sepsis SIRS SIRS with organ dysfunction Septic Shock Not applicable x Other: Present on Admission: Yes x No Clinically Undetermined Physician signature Date Please also document in your Progress Notes and/or Discharge Summary and indicate if the condition was present on admission. MTDD
--- NOTE | 2020-04-30 10:08 | CDS Physician Query ---
Clarification is required for compliance, coding accuracy, and to reflect severity of illness for this patient. Dear Dr. Ruddy Stauffer M.D. Date: 04/30/2020 CDI/CDS Name: Mumtaz Baldwin Clinical Documentation Statement: "54-year-old male who presents with abdominal pain for one day, also having some nausea and vomiting, history of ventral hernia with history of gallstones and drainage tube placed recently." [ H& P Ruddy Stauffer MD 04/26/20] IMPRESSION: Possible cholecystitis, diabetes, heart disease, hypercholesterolemia, possible congestive heart failure. Clinical Finding Show: LAB (04/25) : Chem: Sodium 132 [136-145], Chloride 95 [ 98-107] Medication: Sodium Chloride IV ( 04/25-04/27) Please Clarify the diagnosis associated with this finding: [ x] Hyponatremia [ ] Hypochloremia [ ] Finding no significant [ ] Other: Diagnosis: Present on Admission: [x] Yes [] No [] Clinically Undetermined Physician signature Date Please also document in your Progress Notes and/or Discharge Summary and indicate if the condition was present on admission. MTDD
--- NOTE | 2020-04-30 10:16 | CDS Physician Query ---
Clarification is required for compliance, coding accuracy, and to reflect severity of illness for this patient Dear Dr. Ruddy Stauffer M.D. Date: 04/30/2020 CDI/CDS Name: Mumtaz Baldwin Clinical Documentation Statement: "54-year-old male who presents with abdominal pain for one day, also having some nausea and vomiting, history of ventral hernia with history of gallstones and drainage tube placed recently." [ H& P Ruddy Stauffer MD 04/26/20] IMPRESSION: Possible cholecystitis, diabetes, heart disease, hypercholesterolemia, possible congestive heart failure. Clinical Finding Show: BMI: 35.4kg/m2 LAB (04/25) : Chem: Albumin 3.0 [3.4-5.0], Calcium 8.5 [ 8.5-10.1] Medication: Dextrose 50ml IV ( 04/26-04/27) Please select the most appropriate option: [] Protein/Calorie Malnutrition [x] Mild [] Moderate [] Severe [] Other [] Unable to determine [] Not Applicable Present on Admission: [x] Yes [] No [] Clinically Undetermined Physician signature Date Please also document in your Progress Notes and/or Discharge Summary and indicate if the condition was present on admission. MTDD
--- NOTE | 2020-04-30 10:32 | NUR ---
*-* INSURANCE *-* DISCHARGE SUMMARY HAS BEEN FAXED TO: ELVI SMALLS P: [phone] F: [phone] & AMIE NIELSON P: [phone] F: [phone] Addendum: 05/01/20 at 1221 by JONNATHAN BLANKENSHIP CM CORRECTION WRONG PATIENT INSURACNE INFOR WAS SENT TO: *-* INSURANCE *-* ALL AVAILABLE CLINICALS HAVE BEEN FAXED TO: [facility] P: [phone] F: [phone] Addendum: 04/26/20 at 1352 by JONNATHAN BLANKENSHIP CM F:[phone] & [facility] AUTH YET ON FILE FAX ALL CLINICALS TO [facility] P:[phone] F:[phone] Addendum: 05/01/20 at 1222 by JONNATHAN BLANKENSHIP CM *-* INSURANCE *-* ALL AVAILABLE CLINICALS HAVE BEEN FAXED TO: [facility] P: [phone] F: [phone] & [facility]NO AUTH YET ON FILE FAX ALL CLINICALS TO [facility] P:[phone] F:[phone]
--- NOTE | 2020-05-01 12:20 | NUR ---
*-* INSURANCE *-* ALL AVAILABLE CLINICALS HAVE BEEN FAXED TO: [facility] P: [phone] F: [phone] & [facility] [place]-NO AUTH YET ON FILE FAX ALL CLINICALS TO [facility] P:[phone] F:[phone]
--- NOTE | 2020-05-03 14:50 | NUR ---
*-* INSURANCE *-* DISCHARGE SUMMARY HAS BEEN FAXED TO" [facility] P: [phone] F: [phone] & [facility]NO AUTH YET ON FILE FAX ALL CLINICALS TO [facility] P:[phone] F:[phone]
== END 2020-04-27 13:24 | disposition short-term general hospital (02) ==
LOC: EMR 20:05 → 4E 23:26 → EDBEDREQ 23:42 → 4E 04-26 16:36
DX: K80.10 Calculus of gallbladder with chronic cholecystitis without obstruction (principal); K43.6 Other and unspecified ventral hernia with obstruction, without gangrene; E11.9 Type 2 diabetes mellitus without complications; E78.00 Pure hypercholesterolemia, unspecified; I50.9 Heart failure, unspecified; Z86.73 Personal history of transient ischemic attack (TIA), and cerebral infarction without residual deficits; R74.0 Nonspecific elevation of levels of transaminase and lactic acid dehydrogenase [LDH]; Z95.0 Presence of cardiac pacemaker; E44.1 Mild protein-calorie malnutrition; E87.1 Hypo-osmolality and hyponatremia
CPT/HCPCS: 36415; 71045; 74177; 78266; 80048; 80053; 81003; 82150; 82248; 82962; 83690; 85007; 85025; 85610; 85651; 85730; 86140; 96361; 96365; 96375; 99285; J1815; J2405; J7030